=== PATIENT | female | born 1955 | race Caucasian/White ===

== ENCOUNTER 2017-07-18 02:49 | Inpatient (IN) | payer OTHER ==
[~2017-07-18] VITALS: Ht 152.4 cm; Wt 36.3 kg
[~2017-07-18 02:49] MED LIST: ALPRAZOLAM0.25 M1 PO; GUAIFEN-CODEINE10 ML PO; IMITREX50 M1 PO; LEVAQUIN750 M1 PO; MEDROL4 M2 PO; PAROXETINE HCL40 M1 PO; PAXIL10 M1 PO; PROAIR HFA8.5 GM INH; PROCHLORPERAZIN25 M1 PR
--- NOTE | 2017-07-18 03:36 | ED DYSPNEA/ASTHMA COMPLAINT ---
History of Present Illness General Chief Complaint: Upper Respiratory Sx/Fever Stated Complaint: "COUGHING,FEVER,SEEN LAST WK FOR BRONCHITIS" Source: patient, family, old records Exam Limitations: no limitations Vital Signs & Intake/Output Vital Signs & Intake/Output Vital Signs Date Time Temp Pulse Resp B/P B/P Pulse O2 O2 Flow FiO2 Mean Ox Delivery Rate 07/18 0522 98.9 95 18 122/76 97 Nasal 2.0L Cannula 07/18 0323 Nasal 2.0L Cannula 07/18 0307 100 30 200/80 79 Room Air Room Air Allergies Coded Allergies: amoxicillin (From AUGMENTIN) (Mild, DIARRHEA 07/18/17) clavulanic acid (From AUGMENTIN) (Mild, DIARRHEA 07/18/17) Reconcile Medications Albuterol Sulfate (Proair Hfa) 90 MCG HFA.AER.AD 2 PUF INH Q4-6 PRN PRN WHEEZING Alprazolam 0.25 MG TABLET 1 TAB PO BIDP PRN ANXIETY (Reported) Codeine Phosphate/Guaifenesi (Guaifen-Codeine 200-20 MG/10ML) 20 MG-200 MG/10 ML LIQUID 10 ML PO Q6HR PRN COUGH Levofloxacin (Levaquin) 750 MG TABLET 1 TAB PO DAILY bronchitis Methylprednisolone. (Medrol) 4 MG TAB.DS.PK 1 DP PO AD BRONCHITIS 6 on day 1 then reduce by one tablet daily until gone Paroxetine HCl (Paxil) 10 MG TABLET 1 TAB PO DAILY MENTAL HEALTH (Reported) Paroxetine HCl 40 MG TABLET 1 TAB PO DAILY MENTAL HEALTH (Reported) Prochlorperazine 25 MG SUPP.RECT 1 SUPP [place] BIDP PRN UNKNOWN (Reported) Sumatriptan Succinate (Imitrex) 50 MG TABLET 1 TAB PO DAILY PRN HEADACHE ( Reported) Triage Note: PT BROUGHT DIRECTLY TO 7 FOR O2 SAT OF 79%. PT WAS RECNELTY DX WITH BRONCHITIS AND GIVEN LEVAQUIN, PT FINISHED DOSE BUT FEEL WORSE. PT LUNGS SOUND WHEEZY AND TIGHT. PT HAS COUGH BUT IS NOT PRODUCING PHLEGM. DENIES FEVERS. PT PLACED ON 2L NC AND INCREASED TO 91% Triage Nurses Notes Reviewed? yes HPI: Patient is to the emergency department with increasing shortness of breath and dyspnea on exertion. Positive wheezing. Patient denies any chest pain or chest tightness. Patient states that in the beginning of May she developed bronchitis Z-Moody. Patient felt better until beginning of June when again the symptoms started to come back. She went to see her primary care physician in the middle June and was sent to the emergency room for evaluation for low oxygen level. Patient was social only discharged on steroids and Levaquin. Patient finished the Levaquin last week and completed a 6 day course of steroids. Patient states that she was feeling better until 2 days ago when again the symptoms started to come back. Positive nonproductive cough. No anorexia. No nausea or vomiting. Past History Travel History Traveled to [place] past 21 day No Medical History Any Pertinent Medical History? 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 No Review of Systems Review of Systems Constitutional: Reports: no symptoms. EENTM: Reports: no symptoms. Respiratory: Reports: see HPI, cough, short of breath. Cardiovascular: Reports: no symptoms. GI: Reports: no symptoms. Genitourinary: Reports: no symptoms. Musculoskeletal: Reports: no symptoms. Skin: Reports: no symptoms. Neurological/Psychological: Reports: no symptoms. Hematologic/Endocrine: Reports: no symptoms. Immunologic/Allergic: Reports: no symptoms. All Other Systems: Reviewed and Negative Physical Exam Physical Exam General Appearance: well developed/nourished, alert, awake, anxious, moderate distress Head: atraumatic, normal appearance Eyes: Bilateral: PERRL, EOMI. Ears, Nose, Throat: normal pharynx, normal ENT inspection, hearing grossly normal Neck: normal inspection, supple, full range of motion Respiratory: decreased breath sounds, wheezing Cardiovascular: regular rate/rhythm, normal peripheral pulses Gastrointestinal: normal bowel sounds, soft, non-tender Extremities: normal inspection, normal capillary refill, normal range of motion, no edema Neurologic/Psych: no motor/sensory deficits, awake, alert, oriented x 3, normal mood/affect Skin: intact, normal color, warm/dry Lymphatic: no anterior cervical duc Core Measures ACS in differential dx? No CVA/TIA Diagnosis No Sepsis Present: No Sepsis Focused Exam Completed? No Progress Differential Diagnosis: asthma, AMI, bronchitis, CHF, COPD, pulmonary embolism, pneumonia, pneumothorax Plan of Care: Orders Procedure Date/time Status Heart Healthy Diet 07/18 B Active ED Holding Orders 07/18 553 Active Admit to inpatient 07/18 553 Active Vital Signs 07/18 553 Active Code Status 07/18 553 Active BLOOD CULTURE 07/18 436 Active ARTERIAL BLOOD GAS (GEN) 07/18 336 Complete Telemetry/Tumbler Machine Operator Helper 07/18 336 Active TROPONIN LEVEL 07/18 336 Complete COMPREHENSIVE METABOLIC PANEL 07/18 336 Complete CBC WITHOUT DIFFERENTIAL 07/18 336 Complete EKG 07/18 336 Active Laboratory Tests 07/18/17449: Anion Gap 10, Estimated GFR > 60, BUN/Creatinine Ratio 57.5 H, Glucose 142 H, Calcium 9.5, Total Bilirubin 0.3, AST 26, ALT 29, Alkaline Phosphatase 75, Troponin I < 0.01, Total Protein 6.1 L, Albumin 3.6, Globulin 2.5, Albumin/ Globulin Ratio 1.4, CBC w Diff MAN DIFF ORDERED, RBC 4.43, MCV 95.6, MCH 31.5 H , RDW 14.7 H, MPV 7.0 L, Gran % 90.5 H, Lymphocytes % 4.1 L, Monocytes % 5.1 , Eosinophils % 0, Basophils % 0.3, Absolute Granulocytes 8.1 H, Segmented Neutrophils 95 H, Absolute Lymphocytes 0.4 L, Lymphocytes 4 L, Monocytes 1 L , Absolute Monocytes 0.5, Absolute Eosinophils 0, Absolute Basophils 0, Platelet Estimate ADEQUATE, Normocytic RBCs VERIFIED, Normochromic RBCs VERIFIED, PUBS MCHC 32.9 L, Fld Total RBCs Counted 100 07/18/17419: pH 7.37, pCO2 43, pO2 71 L, HCO3 24, ABG O2 Sat (Measured) 90.0 L, Carboxyhemoglobin 3.4, O2 Concentration % 2LPM, O2 Delivery Method NC, Phlebotomy Draw Site RIGHT BRACHIAL Microbiology 07/18 450 BLOOD: Blood Culture - RECD 07/18 448 BLOOD: Blood Culture - RECD Diagnostic Imaging: Viewed by Me: Radiology Read. Discussed w/RAD: Radiology Read. CXR Impression: PATIENT: NEHEMIAS MASON PRESENT AGE: 62 PATIENT ACCOUNT NO: [id number] : 57 LOCATION: [facility] ORDERING PHYSICIAN: Oscar Gaspar MD SERVICE DATE: 07/18/17 EXAM TYPE: RAD - XRY- PORTABLE CHEST XRAY XR PORTABLE CHEST CLINICAL INFORMATION: Shortness of breath. COMPARISON: Chest x-ray July 04, 2017. TECHNIQUE: Portable frontal view of the chest was obtained. FINDINGS: Lungs are hyperinflated. Hazy opacity within the right midlung could reflect developing pneumonia. Lungs are otherwise clear. There is no pneumothorax. Chronic blunting of the costophrenic angles bilaterally. Cardiac silhouette size is normal. There are no acute osseous findings. IMPRESSION: Hazy opacity within the right midlung could reflect developing pneumonia. Radiographic follow-up recommended following conservative treatment to document resolution. DICTATED BY: Marvin Heredia MD DATE/TIME DICTATED:07/18/17414 SALES TEAM MEMBER:JESUS MANUEL DATE/TIME TRANSCRIBED:414 CONFIDENTIAL, DO NOT COPY WITHOUT APPROPRIATE AUTHORIZATION. < Electronically signed in Other Vendor System> SIGNED BY: Marvin Heredia MD 07/18/17420 Initial ED EKG: SR, COR PULMONAL, NSSTT CHANGES Prior EKG: unchanged Departure Departure Disposition: STILL A PATIENT Condition: Fair Clinical Impression Primary Impression: Pneumonia Qualifiers: Pneumonia type: due to unspecified organism Laterality: right Lung location: middle lobe of lung Qualified Code: J18.1 - Lobar pneumonia, unspecified organism Referrals: Stevo Ovalle MD (PCP/Family) Departure Forms: Customer Survey General Discharge Information Admission Note Spoke With: Debo Dawson MD Documentation of Exam: Documentation of any treatments & extenuating circumstances including Concerns Regarding Discharge (functional status, medication knowledge or non-compliance, living conditions, etc.) that warrant an admission rather than observation: [IV ABX, PULM CONSULT, SMOKING CESSATION EDUCATION, RESP EVAL AND TREATMENT, IV STEROIDS] Critical Care Note Critical Care Note Critical Care Time: non-applicable
--- NOTE | 2017-07-18 04:21 | RADIOLOGY REPORT ---
XR PORTABLE CHEST CLINICAL INFORMATION: Shortness of breath. COMPARISON: Chest x-ray July 04, 2017. TECHNIQUE: Portable frontal view of the chest was obtained. FINDINGS: Lungs are hyperinflated. Hazy opacity within the right midlung could reflect developing pneumonia. Lungs are otherwise clear. There is no pneumothorax. Chronic blunting of the costophrenic angles bilaterally. Cardiac silhouette size is normal. There are no acute osseous findings. IMPRESSION: Hazy opacity within the right midlung could reflect developing pneumonia. Radiographic follow-up recommended following conservative treatment to document resolution.
[2017-07-18 05:09] LABS: ABSOLUTE BASOPHIL COUNT 0 /CUMM (0.0-0.2); ABSOLUTE EOSINOPHIL COUNT 0 /CUMM (0.0-0.7); ABSOLUTE GRANULOCYTE CT 8.1 /CUMM (1.4-6.5); ABSOLUTE LYMPH COUNT 0.4 /CUMM (1.2-3.4); ABSOLUTE MONOCYTE COUNT 0.5 /CUMM (0.10-0.60); BASOPHIL % 0.3 % (0.0-2.0); EOSINOPHIL % 0 % (0-5); GRANULOCYTE % 90.5 % (42.2-75.2); HEMATOCRIT 42.4 % (37-47); MEAN CORPUSCULAR HGB 31.5 PG (27.0-31.0); MEAN CORPUSCULAR HGB CONC 32.9 G/DL (33.0-37.0); MEAN CORPUSCULAR VOLUME 95.6 FL (81.0-99.0); PLATELET COUNT 307 /CUMM (130-400); RBC DISTRIBUTION WIDTH 14.7 % (11.5-14.5); RED BLOOD CELL CT 4.43 /CUMM (4.20-5.40); WHITE BLOOD CELL COUNT 8.9 /CUMM (4.8-10.8)
[2017-07-18 08:11] VITALS: BP 126/78
--- NOTE | 2017-07-18 08:34 | History & Physical ---
Dolly Lara 07/18/17 0833: General Information and HPI MD Statement: I have seen and personally examined NEHEMIAS MASON and documented this H&P. The patient is a 62 year old F who presented with a patient stated chief complaints of worsenig SOB and cough Source of Information: patient, family Exam Limitations: no limitations History of Present Illness: Patient is a 62-year-old thin/lean woman with a past medical history significant for smoking(for more than 30 years), history of anxiety depression, migraine presented to the ED this morning with chief complaints of worsening shortness of breath and cough. Patient mentioned that in May she was diagnosed with bronchitis and was treated with Z-Moody and steroids. After finishing the course her symptoms improved but later in June she started having similar symptoms again. Reported dry cough with shortness of breath without chest discomfort and palpitations. She was seen at her primary care physician office and was sent in to the ER with concerns of low oxygen levels. In the ER patient was prescribed Levaquin and steroids and discharged home. Reported sick contact with her grandchildren. Denied any fever or chills. Denies any nausea vomiting abdominal discomfort. No urinary complaints. Patient mentioned that she finished the antibiotics and steroids last week without much improvement in her symptoms. She has been having nonproductive cough associated with both exertional and resting shortness of breath. Last night her symptoms gotten worse to the point that she could not able to breathe. She was immediately brought to the ER when ambulance. In the ER she was found to be in respiratory distress desaturating to 79%, improved to 91% on 2 L. After receiving DuoNeb treatment with IV steroids and antibiotics, patient felt better. As mentioned above, patient has been smoking for the last 30-40 years, still smokes half a pack a day, never been diagnosed with COPD/seen by distribution clerk. Does not drink alcohol or use any illicit drugs. Allergies/Medications Allergies: Coded Allergies: amoxicillin (From AUGMENTIN) (Mild, DIARRHEA 07/18/17) clavulanic acid (From AUGMENTIN) (Mild, DIARRHEA 07/18/17) Home Med list Albuterol Sulfate (Proair Hfa) 90 MCG HFA.AER.AD 2 PUF INH Q4-6 PRN PRN WHEEZING Alprazolam 0.25 MG TABLET 1 TAB PO BIDP PRN ANXIETY (Reported) Codeine Phosphate/Guaifenesi (Guaifen-Codeine 200-20 MG/10ML) 20 MG-200 MG/10 ML LIQUID 10 ML PO Q6HR PRN COUGH Levofloxacin (Levaquin) 750 MG TABLET 1 TAB PO DAILY bronchitis Methylprednisolone. (Medrol) 4 MG TAB.DS.PK 1 DP PO AD BRONCHITIS 6 on day 1 then reduce by one tablet daily until gone Paroxetine HCl (Paxil) 10 MG TABLET 1 TAB PO DAILY MENTAL HEALTH (Reported) Paroxetine HCl 40 MG TABLET 1 TAB PO DAILY MENTAL HEALTH (Reported) Prochlorperazine 25 MG SUPP.RECT 1 SUPP [place] BIDP PRN UNKNOWN (Reported) Sumatriptan Succinate (Imitrex) 50 MG TABLET 1 TAB PO DAILY PRN HEADACHE ( Reported) Past History Travel History Traveled to [place] past 21 day No Medical History Blood Transfusion Hx: No Neurological: migraine EENT: NONE Cardiovascular: NONE Respiratory: COPD Gastrointestinal: NONE Hepatic: NONE Renal: NONE Musculoskeletal: NONE Psychiatric: anxiety Endocrine: NONE Blood Disorders: NONE Cancer(s): NONE 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 Home Services at Home: None Smoking Status: Current Everyday Smoker ETOH Use: occasional use Illicit Drug Use: denies illicit drug use Review of Systems Review of Systems Constitutional: Denies: chills, diaphoresis, fever, malaise. EENTM: Denies: blurred vision, double vision, visual changes. Cardiovascular: Denies: chest pain, edema, orthopena. Respiratory: Reports: cough, short of breath, wheezing. GI: Denies: abdominal pain, bloating, constipation, diarrhea, distention, bowel incontinence. Genitourinary: Denies: discharge, dysuria. Musculoskeletal: Denies: back pain, gout, joint pain. Skin: Denies: cysts, change in skin color. Neurological/Psychological: Denies: anxiety, ataxia, cognitive dysfunction. Exam & Diagnostic Data Last 24 Hrs of Vital Signs/I&O Vital Signs Date Time Temp Pulse Resp B/P B/P Pulse O2 O2 Flow FiO2 Mean Ox Delivery Rate 07/18 08 91 Nasal 4.5L Cannula 07/18 811 98.0 102 18 126/78 93 Nasal 4.0L Cannula 07/18 0749 97.9 104 24 125/79 90 Nasal 2.0L Cannula 07/18 0522 98.9 95 18 122/76 97 Nasal 2.0L Cannula 07/18 0400 90 Nasal 2.0L Cannula 07/18 0323 Nasal 2.0L Cannula 07/18 0307 100 30 200/80 79 Room Air Room Air Intake & Output 07/18 1600 07/18 0800 07/18 0000 Intake Total 0 Output Total Balance 0 Intake, Oral 0 Patient 79 lb 15.99 oz 79 lb 15.99 oz Weight Physical Exam General Appearance Alert, Mild Distress Skin No Rashes, No Breakdown Skin Temp/Moisture Exam: Warm/Dry Sepsis Skin Exam (color): Normal for Ethnicity HEENT Atraumatic, PERRLA, EOMI Neck Supple, No JVD Cardiovascular Regular Rate, Normal S1, Normal S2 Lungs decreased breath sounds bilaterally with wheezing Abdomen Normal Bowel Sounds, Soft, No Tenderness Neurological Normal Gait, Normal Speech Extremities No Clubbing, No Cyanosis, No Edema Vascular Normal Pulses, Pulses Symmetrical Last 24 Hrs of Labs/Gamaliel: Laboratory Tests 07/18/17 0450: Anion Gap 10, Estimated GFR > 60, BUN/Creatinine Ratio 57.5 H, Glucose 142 H, Calcium 9.5, Total Bilirubin 0.3, AST 26, ALT 29, Alkaline Phosphatase 75, Troponin I < 0.01, Total Protein 6.1 L, Albumin 3.6, Globulin 2.5, Albumin/ Globulin Ratio 1.4, CBC w Diff MAN DIFF ORDERED, RBC 4.43, MCV 95.6, MCH 31.5 H , RDW 14.7 H, MPV 7.0 L, Gran % 90.5 H, Lymphocytes % 4.1 L, Monocytes % 5.1 , Eosinophils % 0, Basophils % 0.3, Absolute Granulocytes 8.1 H, Segmented Neutrophils 95 H, Absolute Lymphocytes 0.4 L, Lymphocytes 4 L, Monocytes 1 L , Absolute Monocytes 0.5, Absolute Eosinophils 0, Absolute Basophils 0, Platelet Estimate ADEQUATE, Normocytic RBCs VERIFIED, Normochromic RBCs VERIFIED, PUBS MCHC 32.9 L, Fld Total RBCs Counted 100 07/18/17 0420: pH 7.37, pCO2 43, pO2 71 L, HCO3 24, ABG O2 Sat (Measured) 90.0 L, Carboxyhemoglobin 3.4, O2 Concentration % 2LPM, O2 Delivery Method NC, Phlebotomy Draw Site RIGHT BRACHIAL Microbiology 07/18 828 URINE ROUT: Legionella Antigen - ORD 07/18 828 URINE ROUT: Streptococcus pneumoniae Antigen (M - ORD 07/18 828 LOWER RESP: Respiratory Culture - ORD 07/18 828 LOWER RESP: Gram Stain - ORD 07/18 714 NASOPHARYN: Influenza Virus A & B Rapid Smear - COMP 07/18 450 BLOOD: Blood Culture - RECD 07/18 448 BLOOD: Blood Culture - RECD Assessment/Plan Assessment: Patient is a 62-year-old thin/lean woman with a past medical history significant for smoking(for more than 30 years), history of anxiety depression, migraine presented to the ED this morning with chief complaints of worsening shortness of breath and cough. Initial vitals on admission: Impression 98.8, pulse 100, blood pressure 200/80 now 126/78, RR: 13 now 18 saturating around 90-93% initially on 2 L now on 4.5 L. Pertinent labs on admission and no evidence of leukocytosis H&H stable normal BEP. First set of troponin negative, EKG pending ABG normal pH 7.37, PCO2 43 with PO2: 71 Chest x-ray : Hazy opacity within the right midlung could reflect developing pneumonia. Assessment and plan This is a 62-year-old thin/lean woman with a past medical history significant for smoking(for more than 30 years), history of anxiety depression, migraine presented to the ED this morning with chief complaints of worsening shortness of breath and cough In the ER she was found to be in respiratory distress desaturating to 79%, improved to 91% on 2 L. After receiving DuoNeb treatment with IV steroids and antibiotics, patient felt better. At the time of evaluation in the morning at around 8 AM, patient was having hard time in breathing denied any chest discomfort or palpitations. She was given another 1 of treatment and oxygen was increased to 4.5 L through nasal cannula. Chest x-ray is evident for developing right mid-level pneumonia but due to significant smoking history and clinical evidence of hypoxia PE should be ruled out Problem list .Acute hypoxic respiratory failure due to Right midlung pneumonia Rule out primary embolism/malignancy. Significant history of smoking History of anxiety and depression Plan : 1.Acute hypoxic respiratory failure due to Right midlung pneumonia: * Admit the patient [facility] floor * Continue with IV cefazolin azithromycin and IV Solu-Medrol 40 mg every 12. * Blood cultures have been sent, will obtain sputum culture urine Legionella and strep pneumo antigens(flu swab negative for influenza). * Robitussin as needed for cough * Monitor vitals every 4 hours. 2.Rule out primary embolism/malignancy leading to postobstructive pneumonia/COPD (due to smoking) * Due to significant smoking history and clinical evidence of hypoxia will rule out pulmonary embolism with CTA chest. First set of troponin negative obtain EKG. * Obtain pulmonary consult. 3. Significant history of smoking: * Smoking cessation counseling has been done * Start nicotine patch. 4.History of anxiety and depression: * Continue home medications. DVT prophylaxis subcutaneous Lovenox Moderate to severe pain controlled with Tylenol Patient is full code As Ranked By This Provider Problem List: 1. Pneumonia Qualifiers Pneumonia type: due to unspecified organism Laterality: right Lung location: middle lobe of lung Qualified Code: J18.1 - Lobar pneumonia, unspecified organism 2. COPD exacerbation Core Measures/Misc (04/08) Acute Coronary Syndrome ACS Diagnosis: No Congestive Heart Failure Congestive Heart Failure Diagnosis No Cerebrovascular Accident CVA/TIA Diagnosis: No VTE (View Protocol) VTE Risk Factors No risk factors No Mechanical VTE Prophylaxis d/t LowRisk-No Interven Req'd No VTE Pharm Prophylaxis d/t LowRisk-No Interven Req'd Sepsis (View protocol) Sepsis Present: No Resident Review Statement Resident Statement: examined this patient, discussed with pharmacy graduate intern Nissa Herbert MD 07/18/17 1017: Attending MD Review Statement Attending Statement Attending MD Statement: examined this patient, discuss w/resident/PA/WOUND CARE PHYSICIAN, agreed w/resident/PA/WOUND CARE PHYSICIAN, reviewed EMR data (avail), discussed with nursing, reviewed images Attending Assessment/Plan: This is a 62-year-old female with a past medical history of emphysema and active tobacco use still smoking who is here with acute hypoxemic respiratory failure. Patient made an outpatient visit to her PCP and got a dose of antibiotics and then came to the ED on July 04 where she was given a Medrol Dosepak and a course of Levaquin. Despite that she continues to be short of breath and today her room air sat as documented in the ER was 79-85%. She is an acute hypoxemic respiratory failure, failed outpatient oral antibiotics and oral steroids and has an opacity in her right middle lung, concern for developing pneumonia. In addition obviously I'm worried about underlying malignancy or a postobstructive pneumonia given the active tobacco use and the severe cachexia. At this point will bring her into [facility], give IV ceftriaxone and azithromycin with IV steroids. TRC with nebs. We'll get a CTA to make sure there is no PE and to look for malignancy. Will call pulmonary to see her and will follow closely. DVT prophylaxis and will follow-up the CTA results. Off note family history is noncontributory.
--- NOTE | 2017-07-18 10:17 | Admission Certification ---
Admission Certification Certification Statement - As attending physician, I certify that at the time of - admission, based on clinical presentation, severity of - symptoms, need for further diagnostic testing and - therapeutic interventions, and risk of adverse outcomes - without in-hospital treatment, in my clinical assessment, - this patient requires an acute hospital stay for a minimum - of two nights or longer. I have also considered psychsocial - factors such as support system, advanced age, financial - issues, cognitive issues, and failed out-patient treatments, - past re-admission history, safety of patient, and lack of - compliance as applicable. Specific rationale supporting this admission is: Patient with severe COPD and emphysema here with acute hypoxemic respiratory failure and pneumonia having failed outpatient treatment.
--- NOTE | 2017-07-18 11:02 | Discharge Summary ---
Visit Information Visit Dates Admission Date: 07/18/17 Discharge Date: 07/24/17 Hospital Course Course Attending Physician: You JOYNER,Viraj Arias Primary Care Physician: Stevo Ovalle MD Consulting Request: Consulting Specialty: Pulmonary Disease Hospital Course: 62-year-old female past medical history of COPD with active tobacco use and probable anxiety and depression was admitted initially to the general medical floor with what was thought to be a COPD exacerbation. Patient is very cachectic and coughing with acute hypoxemic respiratory failure on admission. A CTA was done which was negative for PE but did show severe emphysema with possible right basilar pneumonia and some nonspecific adenopathy. Patient was transferred to the ICU for acute hypoxemic and hypercapnic respiratory failure and was treated with noninvasive positive pressure ventilation with BiPAP, initially IV ceftriaxone and azithromycin later by mouth Ceftin and IV steroids later transitioned to by mouth steroids. She had severe anxiety and we were trying to avoid benzodiazepines. She improved slowly and over the New Year's weekend was transferred back to general medicine. She is now on a by mouth prednisone taper and has a few more days left to complete her by mouth antibiotic course. She's been counseled extensively about tobacco cessation. She is being discharged on home oxygen as she qualified as she severely hypoxemic and knows to follow-up with her PCP and Dr. Orta. Allergies: Coded Allergies: amoxicillin (From AUGMENTIN) (Mild, DIARRHEA 07/22/17) clavulanic acid (From AUGMENTIN) (Mild, DIARRHEA 07/22/17) Disposition Summary Disposition Principal Diagnosis: Acute hypoxic and hypercapnic respiratory failure secondary to COPD exacerbation Right basilar pneumonia COPD cachexia Severe emphysema Additional Diagnosis: Probable anxiety and osteoporosis Discharge Disposition: home health services Discharge Instructions General Discharge Information Code Status: Full Code Patient's Diet: regular Patient's Activity: Ad luis. Follow-Up Instructions/Appts: With the retanned leather roller Dr. Orta. Complete the steroid taper and the antibiotics. Use the oxygen as indicated. Medications at Discharge Discharge Medications: Continue taking these medications: Sumatriptan Succinate (Imitrex) 50 MG TABLET 1 Tablet ORAL DAILY as needed for HEADACHE Qty = 54 Comments: NOT GIVEN IN HOSPITAL Paroxetine HCl (Paxil) 10 MG TABLET 1 Tablet ORAL DAILY Qty = 90 Comments: Last Taken:07/23/2017 Time:8:00 PM 50MG DOSE Alprazolam (Alprazolam) 0.25 MG TABLET 1 Tablet ORAL 2 x Daily as needed as needed for ANXIETY Qty = 30 Comments: Last Taken:07/24/2017 Time:12:00 Albuterol Sulfate (Proair Hfa) 90 MCG HFA.AER.AD 2 Puff Inhale through mouth EVERY 4-6 HOURS NEEDED as needed for WHEEZING Qty = 1 Comments: Last Taken:07/24/17 Time:12:42 Start taking the following new medications: Cefuroxime Axetil (Cefuroxime) 250 MG TABLET 500 Milligram ORAL EVERY 12 HOURS Qty = 10 No Refills Instructions: .. Comments: Last Taken:07/24/2017 Time:09:28 Tiotropium Morley (Spiriva) 18 MCG CAP.W.DEV 1 Puff Inhale through mouth DAILY Qty = 1 No Refills Instructions: .. Comments: Last Taken:07/24/2017 Time:09:30AM Albuterol Sulfate (Albuterol Sulfate) 1.25 MG/3 ML VIAL.NEB 1 Vial Inhale Solution EVERY SIX HOURS as needed for shortness of breath Qty = 75 No Refills Instructions: for nebulizer machine.. Comments: Last Taken:07/24/2017 Time:12:42PM Budesonide/Formoterol Fumarate (Symbicort 160-4.5 Mcg Inhaler) 160 MCG-4.5 MCG/ ACTUATION HFA.AER.AD 2 Puff Inhale through mouth TWICE DAILY Qty = 1 No Refills Instructions: .. Comments: Last Taken:07/24/2017 Time:09:34 Guaifenesin (Guaifenesin) 100 MG/5 ML LIQUID 10 Milliliters ORAL EVERY SIX HOURS NEEDED as needed for COUGH Qty = 1 No Refills Instructions: .. Comments: Last Taken:07/24/2017 Time:09:30AM Prednisone (Prednisone) 10 MG TABLET 0 ORAL SEE INSTRUCTIONS Qty = 30 No Refills Instructions: take 4 pills for two days then take 3 pills for two days then take 2 pills for two days then take 1 pill for two days then take half a pill for two days then stop.. Comments: Last Taken:07/24/2017 Time:09:30AM Copies To: Yamile JOYNER,Stevo [place]; You JOYNER,Viraj Arias
--- NOTE | 2017-07-18 11:51 | CT SCAN REPORT ---
EXAMINATION: CT ANGIOGRAM OF THE CHEST WITH AND WITHOUT CONTRAST (CT PULMONARY ANGIOGRAM FOR PE) CLINICAL INFORMATION: acute SOB COMPARISON: Chest x-ray from earlier today TECHNIQUE: Prior to contrast administration, noncontrast localization images were obtained. Subsequently, multidetector volumetric imaging was performed from the thoracic inlet to below the diaphragms following the administration of 94 mL Optiray 350 intravenous contrast. No contrast reaction reported. Sagittal, coronal, and MIP oblique sagittal reformatted images were obtained on the CT workstation, uploaded to PACS, and reviewed. Total exam dose-length product 186.97 mGy-cm. FINDINGS: QUALITY OF STUDY/CONTRAST BOLUS: Satisfactory PULMONARY ARTERIES: No central or segmental pulmonary emboli are identified. Assessment of the distal vasculature towards the lung bases is inadequate due to respiratory motion artifact. THORACIC AORTA: No aneurysm or dissection. LUNG: There is severe upper lobe predominant emphysema. No regions of consolidation bilaterally. Though assessment of the lung bases is limited due to respiratory motion artifact, there is some suspected tree in bud type nodularity in the basilar right lower lobe, favoring an infectious/inflammatory bronchiolitis. There is also suspected mucoid impaction and peribronchial opacity in the right middle lobe. Dependent atelectasis is suspected in the basilar right lower lobe. PLEURA: No pleural effusion or pneumothorax. MEDIASTINUM: The visualized thyroid gland is unremarkable. There is suspected to be mild right hilar lymphadenopathy. Cardiac size is within normal limits; no pericardial effusion. No evidence of septal bowing or right heart strain. CHEST WALL/AXILLA: No axillary or internal mammary lymphadenopathy. OSSEOUS STRUCTURES: There are scattered mild degenerative changes in the spine. UPPER ABDOMEN: Unremarkable. No reflux of contrast into the hepatic veins to suggest elevated right heart pressures. IMPRESSION: 1. No pulmonary embolus identified. 2. Severe upper lobe predominant emphysema. Suspected regions of tree in bud type nodularity in the basilar right lower lobe, favoring an infectious/inflammatory bronchiolitis. 3. Mild right hilar adenopathy which is nonspecific and may be reactive in nature, though the possibility of malignancy cannot be excluded especially given the severe emphysema. Follow-up CT in 2-3 months may be helpful to assess for persistence, which would increase concern for a malignant process. VTE: negative
[2017-07-18 14:30] VITALS: BP 122/74
--- NOTE | 2017-07-18 17:19 | Cons- Pulmonary ---
General Information and HPI Consulting Request Date of Consult: 07/18/17 Requested By: MED TEAM History of Present Illness: Patient is a 62-year-old thin/lean woman with a past medical history significant for smoking(for more than 30 years), history of anxiety depression, migraine presented to the ED with chief complaints of worsening shortness of breath and cough. Patient mentioned that in May she was diagnosed with bronchitis and was treated with Z-Moody and steroids. After finishing the course her symptoms improved but later in June she started having similar symptoms again. Reported dry cough with shortness of breath without chest discomfort and palpitations. She was seen at her primary care physician office and was sent in to the ER with concerns of low oxygen levels. In the ER patient was prescribed Levaquin and steroids and discharged home. Reported sick contact with her grandchildren. Denied any fever or chills. Denies any nausea vomiting abdominal discomfort. No urinary complaints. She has been having nonproductive cough associated with both exertional and resting shortness of breath. Her symptoms gotten worse to the point that she could not able to breathe. She was immediately brought to the ER when ambulance. In the ER she was found to be in respiratory distress desaturating to 79%, improved to 91% on 2 L. After receiving DuoNeb treatment with IV steroids and antibiotics, patient felt better. 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 Does not drink alcohol or use any illicit drugs. No prior steroid use Never been intubated Allergies/Medications Allergies: Coded Allergies: amoxicillin (From AUGMENTIN) (Mild, DIARRHEA 07/18/17) clavulanic acid (From AUGMENTIN) (Mild, DIARRHEA 07/18/17) Home Med List: Albuterol Sulfate (Proair Hfa) 90 MCG HFA.AER.AD 2 PUF INH Q4-6 PRN PRN WHEEZING Alprazolam 0.25 MG TABLET 1 TAB PO BIDP PRN ANXIETY (Reported) Codeine Phosphate/Guaifenesi (Guaifen-Codeine 200-20 MG/10ML) 20 MG-200 MG/10 ML LIQUID 10 ML PO Q6HR PRN COUGH Levofloxacin (Levaquin) 750 MG TABLET 1 TAB PO DAILY bronchitis Methylprednisolone. (Medrol) 4 MG TAB.DS.PK 1 DP PO AD BRONCHITIS 6 on day 1 then reduce by one tablet daily until gone Paroxetine HCl (Paxil) 10 MG TABLET 1 TAB PO DAILY MENTAL HEALTH (Reported) Paroxetine HCl 40 MG TABLET 1 TAB PO DAILY MENTAL HEALTH (Reported) Prochlorperazine 25 MG SUPP.RECT 1 SUPP [place] BIDP PRN UNKNOWN (Reported) Sumatriptan Succinate (Imitrex) 50 MG TABLET 1 TAB PO DAILY PRN HEADACHE ( Reported) Review of Systems Comments Constitutional: Denies: chills, diaphoresis, fever, malaise. EENTM: Denies: blurred vision, double vision, visual changes. Cardiovascular: Denies: chest pain, edema, orthopena. Respiratory: Reports: cough, short of breath, wheezing. GI: Denies: abdominal pain, bloating, constipation, diarrhea, distention, bowel incontinence. Genitourinary: Denies: discharge, dysuria. Musculoskeletal: Denies: back pain, gout, joint pain. Skin: Denies: cysts, change in skin color. Neurological/Psychological: Denies: anxiety, ataxia, cognitive dysfunction. 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 Home Services at Home: None Smoking Status: Current Everyday Smoker ETOH Use: occasional use Illicit Drug Use: denies illicit drug use Exam & Diagnostic Data Last 24 Hrs of Vital Signs/I&O Vital Signs Date Time Temp Pulse Resp B/P B/P Pulse O2 O2 Flow FiO2 Mean Ox Delivery Rate 07/18 1430 97.8 92 18 122/74 94 Nasal 4.5L Cannula 07/18 1028 Nasal 4.0L Cannula 07/18 0811 91 Nasal 4.5L Cannula 07/18 0811 98.0 102 18 126/78 93 Nasal 4.0L Cannula 07/18 0750 93 Nasal 4.0L Cannula 07/18 0749 97.9 104 24 125/79 90 Nasal 2.0L Cannula 07/18 0522 98.9 95 18 122/76 97 Nasal 2.0L Cannula 07/18 0400 90 Nasal 2.0L Cannula 07/18 0323 Nasal 2.0L Cannula 07/18 0307 100 30 200/80 79 Room Air Room Air Intake & Output 07/18 1600 07/18 0800 07/18 0000 Intake Total 600 0 Output Total Balance 600 0 Intake, Oral 600 0 Patient 79 lb 15.99 oz 79 lb 15.99 oz Weight Last 48 Hrs of Labs/Gamaliel: Laboratory Tests 07/18/17 0450: Anion Gap 10, Estimated GFR > 60, BUN/Creatinine Ratio 57.5 H, Glucose 142 H, Calcium 9.5, Total Bilirubin 0.3, AST 26, ALT 29, Alkaline Phosphatase 75, Troponin I < 0.01, Ccu-Z-Psfuaerxnfd Pept 100, Total Protein 6.1 L, Albumin 3.6 , Globulin 2.5, Albumin/Globulin Ratio 1.4, CBC w Diff MAN DIFF ORDERED, RBC 4.43, MCV 95.6, MCH 31.5 H, RDW 14.7 H, MPV 7.0 L, Gran % 90.5 H, Lymphocytes % 4.1 L, Monocytes % 5.1, Eosinophils % 0, Basophils % 0.3, Absolute Granulocytes 8.1 H, Segmented Neutrophils 95 H, Absolute Lymphocytes 0.4 L, Lymphocytes 4 L, Monocytes 1 L, Absolute Monocytes 0.5, Absolute Eosinophils 0, Absolute Basophils 0, Platelet Estimate ADEQUATE, Normocytic RBCs VERIFIED, Normochromic RBCs VERIFIED, PUBS MCHC 32.9 L, Fld Total RBCs Counted 100 07/18/17 0420: pH 7.37, pCO2 43, pO2 71 L, HCO3 24, ABG O2 Sat (Measured) 90.0 L, Carboxyhemoglobin 3.4, O2 Concentration % 2LPM, O2 Delivery Method NC, Phlebotomy Draw Site RIGHT BRACHIAL Microbiology 07/18 1613 URINE ROUT: Legionella Antigen - COMP 07/18 1613 URINE ROUT: Streptococcus pneumoniae Antigen (M - COMP 07/18 0714 NASOPHARYN: Influenza Virus A & B Rapid Smear - COMP Assessment/Plan Impression/Plan: General Appearance Alert, Mild Distress Skin No Rashes, No Breakdown Skin Temp/Moisture Exam: Warm/Dry Sepsis Skin Exam (color): Normal for Ethnicity HEENT Atraumatic, PERRLA, EOMI Neck Supple, No JVD Cardiovascular Regular Rate, Normal S1, Normal S2 Lungs decreased breath sounds bilaterally with wheezing Abdomen Normal Bowel Sounds, Soft, No Tenderness Neurological Normal Gait, Normal Speech Extremities No Clubbing, No Cyanosis, No Edema Vascular Normal Pulses, Pulses Symmetrical CT CHEST IMPRESSION: 1. No pulmonary embolus identified. 2. Severe upper lobe predominant emphysema. Suspected regions of tree in bud type nodularity in the basilar right lower lobe, favoring an infectious/inflammatory bronchiolitis. 3. Mild right hilar adenopathy which is nonspecific and may be reactive in nature, though the possibility of malignancy cannot be excluded especially given the severe emphysema. Follow-up CT in 2-3 months may be helpful to assess for persistence, which would increase concern for a malignant process. VTE: negative DICTATED BY: Philip Bean MD DATE/TIME DICTATED:07/18/173 IMPRESSION This is a 62-year-old thin/lean woman with a past medical history significant for smoking(for more than 30 years), history of anxiety depression, migraine presented to the ED this morning with chief complaints of worsening shortness of breath and cough ISSUES Acute hypoxic and mild hypercarbic resp failure due to ACOPDE with pna Rt sided PNA Rt hilar lymphadenopathy and would need short term follow up with ct COPD cachexia Prob sig osteoporosis ANxiety and depression Sig smoking history REC Sputum culture Steroids at 80 mg for two more days and taper in 14 days Keep hob up Cont abx for now NEbs atc Pt counselled about smoking cessation WIll follow closely Pt is aware of follow ct etc will follow with the team Consult Acknowledgment - Thank you for your consult request.
[2017-07-18 21:54] VITALS: BP 130/74
[2017-07-19 06:31] VITALS: BP 128/70
--- NOTE | 2017-07-19 07:21 | PN- Housestaff ---
Subjective Follow-up For: PNA COPD exacerbation Subjective: I have seen and examined the patient. she is in respiratroy distress. ABG showed ph 7.30 with co2 61. per pulm consultation patient will be transferred to ICU, on bipap machine. family updated Review of Systems Constitutional: Reports: see HPI. Objective Last 24 Hrs of Vital Signs/I&O Vital Signs Date Time Temp Pulse Resp B/P B/P Pulse O2 O2 Flow FiO2 Mean Ox Delivery Rate 07/19 0803 92 Nasal 6.0L Cannula 07/19 0800 90 Nasal 6.0L Cannula 07/19 0631 97.9 103 20 128/70 98 07/19 0540 95 Nasal 6.0L Cannula 07/19 0000 Nasal 4.0L Cannula 07/18 2154 98.8 91 18 130/74 94 07/18 1700 99 Nasal 6.0L Cannula 07/18 1600 Nasal 4.0L Cannula 07/18 1430 97.8 92 18 122/74 94 Nasal 4.5L Cannula Intake & Output 07/19 1600 07/19 0800 07/19 0000 Intake Total 550 Output Total 400 350 Balance 150 -350 Intake, IV 310 Intake, Oral 240 Number 0 Bowel Movements Output, Urine 400 350 Physical Exam General Appearance: Alert, Oriented X3, Severe Distress Cardiovascular: tachcardia Lungs: decreased breath sounds BL with wheezing Extremities: No Clubbing, No Cyanosis, No Edema Current Medications: Current Medications Sig/Luma Start time Last Medication Dose Route Stop Time Status Admin Acetaminophen 650 MG Q6P PRN 07/18 0830 AC 07/18 PO 1157 Acetaminophen 1,000 MG Q6P PRN 07/18 0830 AC IV Albuterol Sulfate 3 ML EVERY 4 HRS/AWAKE 07/18 1200 AC 07/19 INH 0803 Alprazolam 0.25 MG Q12P PRN 07/18 0845 DC 07/19 PO 07/25 0844 0128 Azithromycin 500 MG Q24H 07/19 0530 AC 07/19 Sodium Chloride 250 ML IV 0519 Azithromycin 500 MG Q24H 07/19 0500 DC Sodium Chloride 250 ML IV Ceftriaxone Sodium 1,000 MG Q24H 07/19 0500 DC IV Ceftriaxone Sodium 1,000 MG Q24H 07/19 0500 AC 07/19 IV 0519 Enoxaparin Sodium 40 MG DAILY 07/18 1000 AC 07/19 SC 1031 Guaifenesin 600 MG Q12 07/18 2222 AC 07/18 PO 2236 Guaifenesin 10 ML Q6P PRN 07/18 0830 AC PO Methylprednisolone 40 MG Q8 07/19 1400 AC IV Methylprednisolone 40 MG Q12 07/18 1000 DC 07/19 IV 0808 Morphine Sulfate 2 MG ONCE ONE 07/19 0845 DC 07/19 IV 07/19 0846 0850 Ondansetron HCl 4 MG ONCE ONE 07/19 0600 DC IV 07/19 0601 Oxycodone HCl 5 MG Q8P PRN 07/18 0830 DC 07/18 PO 1905 Paroxetine HCl 50 MG 2200 07/18 2200 AC 07/18 PO 2236 Paroxetine HCl 50 MG DAILY 07/18 1000 DC PO Sumatriptan Succinate 50 MG DAILY NEEDED PRN 07/18 0915 DC 07/19 PO 0518 Last 24 Hrs of Lab/Gamaliel Results Last 24 Hrs of Labs/Mics: Laboratory Tests 07/19/17 0830: pH 7.30 *L, pCO2 61 *H, pO2 107 H, HCO3 29 H, ABG O2 Sat (Measured) 98.0, Carboxyhemoglobin 1.2 L, O2 Concentration % 6L, O2 Delivery Method NC, Phlebotomy Draw Site RIGHT RADIAL 07/19/17 0750: Anion Gap 7, Estimated GFR > 60, BUN/Creatinine Ratio 52.5 H, Troponin I Pending, CBC w Diff Pending, WBC Pending, RBC Pending, Hgb Pending, Hct Pending, MCV Pending, MCH Pending, RDW Pending, Plt Count Pending, MPV Pending, Gran % Pending, Lymphocytes % Pending, Monocytes % Pending, Eosinophils % Pending, Basophils % Pending, Absolute Granulocytes Pending, Absolute Lymphocytes Pending , Absolute Monocytes Pending, Absolute Eosinophils Pending, Absolute Basophils Pending, PUBS MCHC Pending Microbiology 07/19 943 GI: Surveillance Culture - ORD 07/19 930 UPPER RESP: Surveillance Culture - RECD 07/18 1613 URINE ROUT: Legionella Antigen - COMP 07/18 1613 URINE ROUT: Streptococcus pneumoniae Antigen (M - COMP Assessment/Plan Assessment: Patient is a 62-year-old thin/lean woman with a past medical history significant for smoking(for more than 30 years), history of anxiety depression, migraine presented to the ED this morning with chief complaints of worsening shortness of breath and cough. Initial vitals on admission: Impression 98.8, pulse 100, blood pressure 200/80 now 126/78, RR: 13 now 18 saturating around 90-93% initially on 2 L now on 4.5 L. Pertinent labs on admission and no evidence of leukocytosis H&H stable normal BEP. First set of troponin negative, EKG pending ABG normal pH 7.37, PCO2 43 with PO2: 71 Chest x-ray : Hazy opacity within the right midlung could reflect developing pneumonia. In the ER she was found to be in respiratory distress desaturating to 79%, improved to 91% on 2 L. After receiving DuoNeb treatment with IV steroids and antibiotics, patient felt better. At the time of evaluation in the morning at around 8 AM, patient was having hard time in breathing denied any chest discomfort or palpitations. She was given another 1 of treatment and oxygen was increased to 4.5 L through nasal cannula. Chest x-ray is evident for developing right mid-level pneumonia CTA ruled out PE patient had an episode of respiratoy distress with hypercarbic hypoxia in the morning assessment and plan: Plan : #.Acute hypoxic respiratory failure due to Right midlung pneumonia and COPD exacerbation * transfer ICU and put the patient on BiPAP and stat chest x-ray * Continue IV ceftriaxone and azithromycin with IV Solu-Medrol 40 mg every 8 * Blood culture, sputum culture, strep and Legionella antigen so far negative * Avoid intubation * May have low-dose morphine if develops respiratory distress prn * No other narcotics or benzos allowed * Smoking cessation counseling has been done * Start nicotine patch. #History of anxiety and depression with migraine/FTT, cachexia * HOLD imiterex and beznos * c/w SSRI * May benefit from nutrition consult DVT prophylaxis subcutaneous Lovenox Patient is full code Problem List: 1. COPD exacerbation 2. Pneumonia Pain Ratin Pain Location: no pain Pain Goal: Pain 4 or less Pain Plan: same Tomorrow's Labs & Rationales: cbc bep
[2017-07-19 09:36] LABS: ABSOLUTE BASOPHIL COUNT 0 /CUMM (0.0-0.2); ABSOLUTE EOSINOPHIL COUNT 0 /CUMM (0.0-0.7); ABSOLUTE GRANULOCYTE CT 8.2 /CUMM (1.4-6.5); ABSOLUTE LYMPH COUNT 0.4 /CUMM (1.2-3.4); ABSOLUTE MONOCYTE COUNT 0.7 /CUMM (0.10-0.60); BASOPHIL % 0.1 % (0.0-2.0); EOSINOPHIL % 0 % (0-5); GRANULOCYTE % 87.5 % (42.2-75.2); MEAN CORPUSCULAR HGB 31.9 PG (27.0-31.0); MEAN CORPUSCULAR HGB CONC 33.2 G/DL (33.0-37.0); MEAN PLATELET VOLUME 7.4 FL (7.4-10.4); PLATELET COUNT 277 /CUMM (130-400); RBC DISTRIBUTION WIDTH 14.5 % (11.5-14.5); RED BLOOD CELL CT 4.37 /CUMM (4.20-5.40); WHITE BLOOD CELL COUNT 9.4 /CUMM (4.8-10.8)
--- NOTE | 2017-07-19 09:55 | PN- CRCU ---
Subjective HPI/Critical Care Issues: Events data reviewed events and data reviewed Patient became significantly worse over the night. This morning she was found to be in significant respiratory failure and was transferred to the ICU for hypercarbic respiratory failure with worsening overall status. The PCO2 was quite elevated. Patient received 1 dose of morphine and subsequently was treated with BiPAP in the ICU and she feels much better. No worsening cough or fever noted on the floor. Objective Current Medications: Current Medications Sig/Luma Start time Last Medication Dose Route Stop Time Status Admin Acetaminophen 650 MG Q6P PRN 07/18 0830 AC 07/18 PO 1157 Acetaminophen 1,000 MG Q6P PRN 07/18 0830 AC IV Albuterol Sulfate 3 ML EVERY 4 HRS/AWAKE 07/18 1200 AC 07/19 INH 0803 Alprazolam 0.25 MG Q12P PRN 07/18 0845 DC 07/19 PO 07/25 0844 0128 Azithromycin 500 MG Q24H 07/19 0530 AC 07/19 Sodium Chloride 250 ML IV 0519 Azithromycin 500 MG Q24H 07/19 0500 DC Sodium Chloride 250 ML IV Ceftriaxone Sodium 1,000 MG Q24H 07/19 0500 DC IV Ceftriaxone Sodium 1,000 MG Q24H 07/19 0500 AC 07/19 IV 0519 Enoxaparin Sodium 40 MG DAILY 07/18 1000 AC 07/18 SC 1103 Guaifenesin 600 MG Q12 07/18 2222 AC 07/18 PO 2236 Guaifenesin 10 ML Q6P PRN 07/18 0830 AC PO Methylprednisolone 40 MG Q8 07/19 1400 AC IV Methylprednisolone 40 MG Q12 07/18 1000 DC 07/19 IV 0808 Morphine Sulfate 2 MG ONCE ONE 07/19 0845 DC 07/19 IV 07/19 0846 0850 Ondansetron HCl 4 MG ONCE ONE 07/19 0600 DC IV 07/19 0601 Oxycodone HCl 5 MG Q8P PRN 07/18 0830 DC 07/18 PO 1905 Paroxetine HCl 50 MG 2200 07/18 2200 AC 07/18 PO 2236 Paroxetine HCl 50 MG DAILY 07/18 1000 DC PO Sumatriptan Succinate 50 MG DAILY NEEDED PRN 07/18 0915 DC 07/19 PO 0518 Vital Signs & I&O Last 24 Hrs of Vitals and I&O: Vital Signs Date Time Temp Pulse Resp B/P B/P Pulse O2 O2 Flow FiO2 Mean Ox Delivery Rate 07/19 0803 92 Nasal 6.0L Cannula 07/19 0800 90 Nasal 6.0L Cannula 07/19 0631 97.9 103 20 128/70 98 07/19 0540 95 Nasal 6.0L Cannula 07/19 0000 Nasal 4.0L Cannula 07/18 2154 98.8 91 18 130/74 94 07/18 1700 99 Nasal 6.0L Cannula 07/18 1600 Nasal 4.0L Cannula 07/18 1430 97.8 92 18 122/74 94 Nasal 4.5L Cannula 07/18 1028 Nasal 4.0L Cannula Intake & Output 07/19 1600 07/19 0800 07/19 0000 Intake Total 550 Output Total 400 350 Balance 150 -350 Intake, IV 310 Intake, Oral 240 Number 0 Bowel Movements Output, Urine 400 350 Laboratory Tests 07/19 07/19 0830 0750 Blood Gas pH (7.35 - 7.45 PH) 7.30 *L pCO2 (35 - 45 TORR) 61 *H pO2 (80 - 100 TORR) 107 H HCO3 (21 - 28 MEQ/L) 29 H ABG O2 Sat (Measured) (>96.0 %) 98.0 Carboxyhemoglobin (1.5 - 5.0 %) 1.2 L O2 Concentration % 6L O2 Delivery Method NC Chemistry Sodium Pending Potassium Pending Chloride Pending Carbon Dioxide Pending Anion Gap Pending BUN Pending Creatinine Pending BUN/Creatinine Ratio Pending Troponin I Pending Hematology CBC w Diff Pending WBC Pending RBC Pending Hgb Pending Hct Pending MCV Pending MCH Pending RDW Pending Plt Count Pending MPV Pending PUBS MCHC Pending Miscellaneous Phlebotomy Draw Site RIGHT RADIAL 07/18 07/18 0450 0420 Blood Gas pH (7.35 - 7.45 PH) 7.37 pCO2 (35 - 45 TORR) 43 pO2 (80 - 100 TORR) 71 L HCO3 (21 - 28 MEQ/L) 24 ABG O2 Sat (Measured) (>96.0 %) 90.0 L Carboxyhemoglobin (1.5 - 5.0 %) 3.4 O2 Concentration % 2LPM O2 Delivery Method NC Chemistry Sodium (137 - 145 mmol/L) 144 Potassium (3.5 - 5.1 mmol/L) 4.2 Chloride (98 - 107 mmol/L) 107 Carbon Dioxide (22 - 30 mmol/L) 27 Anion Gap (5 - 16) 10 BUN (7 - 17 mg/dL) 23 H Creatinine (0.5 - 1.0 mg/dL) 0.4 L Estimated GFR (>60 ml/min) > 60 BUN/Creatinine Ratio (7 - 25 %) 57.5 H Glucose (65 - 99 mg/dL) 142 H Calcium (8.4 - 10.2 mg/dL) 9.5 Total Bilirubin (0.2 - 1.3 mg/dL) 0.3 AST (14 - 36 U/L) 26 ALT (9 - 52 U/L) 29 Alkaline Phosphatase (<127 U/L) 75 Troponin I (< 0.11 ng/ml) < 0.01 Xig-[id number] Pept (<125 pg/mL) 100 Total Protein (6.3 - 8.2 g/dL) 6.1 L Albumin (3.5 - 5.0 g/dL) 3.6 Globulin (1.9 - 4.2 gm/dL) 2.5 Albumin/Globulin Ratio (1.1 - 2.2 %) 1.4 Hematology CBC w Diff MAN DIFF ORDERED WBC (4.8 - 10.8 /CUMM) 8.9 RBC (4.20 - 5.40 /CUMM) 4.43 Hgb (12.0 - 16.0 G/DL) 14.0 Hct (37 - 47 %) 42.4 MCV (81.0 - 99.0 FL) 95.6 MCH (27.0 - 31.0 PG) 31.5 H RDW (11.5 - 14.5 %) 14.7 H Plt Count (130 - 400 /CUMM) 307 MPV (7.4 - 10.4 FL) 7.0 L Gran % (42.2 - 75.2 %) 90.5 H Lymphocytes % (20.5 - 51.1 %) 4.1 L Monocytes % (1.7 - 9.3 %) 5.1 Eosinophils % (0 - 5 %) 0 Basophils % (0.0 - 2.0 %) 0.3 Absolute Granulocytes (1.4 - 6.5 /CUMM) 8.1 H Segmented Neutrophils (42.2 - 75.2 %) 95 H Absolute Lymphocytes (1.2 - 3.4 /CUMM) 0.4 L Lymphocytes (20.5 - 51.1 %) 4 L Monocytes (1.7 - 9.3 %) 1 L Absolute Monocytes (0.10 - 0.60 /CUMM) 0.5 Absolute Eosinophils (0.0 - 0.7 /CUMM) 0 Absolute Basophils (0.0 - 0.2 /CUMM) 0 Platelet Estimate (ADEQUATE) ADEQUATE Normocytic RBCs VERIFIED Normochromic RBCs VERIFIED PUBS MCHC (33.0 - 37.0 G/DL) 32.9 L Miscellaneous Phlebotomy Draw Site RIGHT BRACHIAL Other Body Source Fld Total RBCs Counted (%) 100 Microbiology Date/Time Procedure - Status Source Growth 07/19 943 Surveillance Culture - ORD UPPER RESP 07/19 943 Surveillance Culture - ORD GI 07/18 161 Legionella Antigen - COMP URINE ROUT 07/18 161 Streptococcus pneumoniae Antigen (M - COMP URINE ROUT 07/18 0828 Respiratory Culture - COLB LOWER RESP 07/18 08 Gram Stain - COLB LOWER RESP 07/18 0714 Influenza Virus A & B Rapid Smear - COMP NASOPHARYN 07/18 0450 Blood Culture - RECD BLOOD 07/18 0448 Blood Culture - RECD BLOOD Impression/Plan Impression/Plan Impression/Plan: General Appearance Alert, Mild Distress, on bipap Skin No Rashes, No Breakdown Skin Temp/Moisture Exam: Warm/D Sepsis Skin Exam (color): Normal for Ethnicity HEENT Atraumatic, PERRLA, EOMI Neck Supple, No JVD Cardiovascular Regular Rate, Normal S1, Normal S2 Lungs decreased breath sounds bilaterally with wheezing Abdomen Normal Bowel Sounds, Soft, No Tenderness Neurological Normal Gait, Normal Speech Extremities No Clubbing, No Cyanosis, No Edema Vascular Normal Pulses, Pulses Symmetrical CT CHEST IMPRESSION: 1. No pulmonary embolus identified. 2. Severe upper lobe predominant emphysema. Suspected regions of tree in bud type nodularity in the basilar right lower lobe, favoring an infectious/inflammatory bronchiolitis. 3. Mild right hilar adenopathy which is nonspecific and may be reactive in nature, though the possibility of malignancy cannot be excluded especially given the severe emphysema. Follow-up CT in 2-3 months may be helpful to assess for persistence, which would increase concern for a malignant process. VTE: negative DICTATED BY: Philip Bean MD DATE/TIME DICTATED:12/27/17 / 1133 IMPRESSION This is a 62-year-old thin/lean woman with a past medical history significant for smoking(for more than 30 years), history of anxiety depression, migraine presented to the ED this morning with chief complaints of worsening shortness of breath and cough ISSUES Acute hypoxic and hypercarbic resp failure due to ACOPDE with pna now in icu Rt sided PNA Rt hilar lymphadenopathy and would need short term follow up with ct COPD cachexia Prob sig osteoporosis ANxiety and depression Sig smoking history REC ICU transfer BIPAP this am and when stable can come off bipap for few hrs on and off and needs bipap tonight Sputum culture if any IV steroids 40 qr and reduce to 40 q12 iv morphine or sub cut morphine 1-2 mg for dyspnea q4 hrs Avoid benzo ABG only if she is lethargic if not use clinical judgement Keep hob up Cont abx NEbs atc Pt counselled about smoking cessation WIll follow closely Pt is aware of follow ct etc will follow with the team Pt is critically ill tts 40 mins
--- NOTE | 2017-07-19 10:08 | RADIOLOGY REPORT ---
EXAMINATION: XR PORTABLE CHEST CLINICAL INFORMATION: Follow-up pneumonia COMPARISON: Chest x-ray 07/18/2017 TECHNIQUE: Portable frontal view of the chest was obtained. FINDINGS: Lungs remain hyperinflated with flattening of the diaphragms. Heart size is normal. Pulmonary vascularity is normal. There is diffuse interstitial prominence throughout the lung farfan which may be chronic. There is some linear atelectasis in the right upper lobe. No focal area of dense consolidation is identified. There is no pneumothorax or significant pleural effusion seen at this time. IMPRESSION: Changes of chronic obstructive disease with hyperinflated lungs and interstitial prominence throughout. No pneumothorax or focal area of dense consolidation is seen at this time. Some linear atelectasis in the right lung apex.
[2017-07-19 16:00] VITALS: BP 110/58
[2017-07-20] VITALS: BP 128/86
[2017-07-20 05:58] LABS: ABSOLUTE BASOPHIL COUNT 0 /CUMM (0.0-0.2); ABSOLUTE EOSINOPHIL COUNT 0 /CUMM (0.0-0.7); ABSOLUTE GRANULOCYTE CT 3.9 /CUMM (1.4-6.5); ABSOLUTE LYMPH COUNT 0.5 /CUMM (1.2-3.4); ABSOLUTE MONOCYTE COUNT 0.6 /CUMM (0.10-0.60); BASOPHIL % 0.1 % (0.0-2.0); EOSINOPHIL % 0 % (0-5); GRANULOCYTE % 76.7 % (42.2-75.2); HEMATOCRIT 38.9 % (37-47); MEAN CORPUSCULAR HGB 32.3 PG (27.0-31.0); MEAN CORPUSCULAR HGB CONC 33.4 G/DL (33.0-37.0); MEAN CORPUSCULAR VOLUME 96.8 FL (81.0-99.0); MEAN PLATELET VOLUME 7.3 FL (7.4-10.4); PLATELET COUNT 234 /CUMM (130-400); RBC DISTRIBUTION WIDTH 14.7 % (11.5-14.5); RED BLOOD CELL CT 4.01 /CUMM (4.20-5.40)
[2017-07-20 08:00] VITALS: BP 116/66
--- NOTE | 2017-07-20 10:23 | PN- Resident CRCU ---
Subjective HPI/CRCU Issues: * Acute hypoxic respiratory failure due to COPD exacerbation and pneumonia on BIPAP * Right midlung pneumonia * Right hilar lymphadenopathy * History of anxiety and depression with migraine/FTT * cachexia 24 Hour Events: Patient was transferred to ICU yesterday due to significant worsening of respiratory status/acute hypoxic hypercarbic respiratory failure. She has been put on BiPAP and has been doing good since then. No fevers, cough, chest pain, palpitations or any other complaints. Objective Vital Signs & I&O Last 8 Hrs of Vitals and I&O: J Exam General Appearance: well developed/nourished, alert, awake, comfortable, cachetic Head: atraumatic Ears, Nose, Throat: on high flow Neck: normal inspection Respiratory: diminished breath sounds bilaterally, no wheezing heard Cardiovascular: regular rate/rhythm Gastrointestinal: normal bowel sounds, soft Extremities: normal inspection, no edema Current Medications: Current Medications Sig/Luma Start time Last Medication Dose Route Stop Time Status Admin Acetaminophen 650 MG Q6P PRN 07/18 0830 AC 07/18 PO 1157 Acetaminophen 1,000 MG Q6P PRN 07/18 0830 AC IV Albuterol Sulfate 3 ML EVERY 4 HRS/AWAKE 07/18 1200 AC 07/20 INH 0753 Azithromycin 500 MG Q24H 07/19 0530 07/20 Sodium Chloride 250 ML IV 0508 Ceftriaxone Sodium 1,000 MG Q24H 07/19 0500 AC 07/20 IV 0508 Dextrose/Sodium 1,000 ML Q20H 07/19 1430 07/20 Chloride IV 0132 Dextrose/Water 1,000 ML Q20H 07/19 1415 DC 07/19 IV 1615 Enoxaparin Sodium 40 MG DAILY 07/18 1000 07/20 SC 0947 Guaifenesin 600 MG Q12 07/18 2222 AC 07/20 PO 0947 Guaifenesin 10 ML Q6P PRN 07/18 0830 AC PO Methylprednisolone 40 MG Q8 07/19 1400 AC 07/20 IV 0508 Morphine Sulfate 10 MG .STK-MED ONE 07/19 1450 DC IV 07/19 1451 Morphine Sulfate 0.5 MG Q4 HRS NEEDED PRN 07/19 1045 07/20 IV 0523 Paroxetine HCl 50 MG 2200 07/18 2200 AC 07/19 PO 2134 Impression/Plan Impression/Problem List Impression: Patient is a 62-year-old thin/lean woman with a past medical history significant for smoking(for more than 30 years), history of anxiety depression, migraine presented to the ED this morning with chief complaints of worsening shortness of breath and cough. Patient was transferred to ICU yesterday due to significant worsening of respiratory status/acute hypoxic hypercarbic respiratory failure. She has been put on BiPAP and has been doing good since then. No fevers, cough, chest pain, palpitations or any other complaints. CXR(07/19/2017): Shows Changes of chronic obstructive disease with hyperinflated lungs and interstitial prominence throughout. No pneumothorax or focal area of dense consolidation is seen at Some linear atelectasis in the right lung apex. ABG 07/19/2017: 7.34/57/106/30( prior to BiPAP) Assessment * Acute hypoxic respiratory failure due to COPD exacerbation and pneumonia on BIPAP * Right midlung pneumonia * Right hilar lymphadenopathy * History of anxiety and depression with migraine/FTT * cachexia Plan * Patient on high flow at this time. BiPAP as needed, BiPAP overnight * We will reduce IV steroids to 40 every 12 today * IV morphine 1 mg every 4 hours when necessary for dyspnea * Continued on ceftriaxone and azithromycin * Blood culture, sputum culture, strep and Legionella antigen so far negative * AvoidNo other narcotics or benzos * Smoking cessation counseling has been done * On nicotine patch. * HOLD imiterex and beznos * c/w SSRI * May benefit from nutrition consult * DVT prophylaxis subcutaneous Lovenox * Full code Problem List: 1. Pneumonia 2. COPD exacerbation Pain Ratin Pain Location: na Tomorrow's Labs & Rationales: icu bundle ..elevated lfts's Plan DVT/Prophylaxis: mechanical
--- NOTE | 2017-07-20 10:25 | PN- CRCU ---
Subjective HPI/Critical Care Issues: Better on high flow oxygen Was on bipap last night fatigue Objective Current Medications: Current Medications Sig/Luma Start time Last Medication Dose Route Stop Time Status Admin Acetaminophen 650 MG Q6P PRN 07/18 0830 AC 07/18 PO 1157 Acetaminophen 1,000 MG Q6P PRN 07/18 0830 AC IV Albuterol Sulfate 3 ML EVERY 4 HRS/AWAKE 07/18 1200 AC 07/20 INH 0753 Azithromycin 500 MG Q24H 07/19 0530 AC 07/20 Sodium Chloride 250 ML IV 0508 Ceftriaxone Sodium 1,000 MG Q24H 07/19 0500 AC 07/20 IV 0508 Dextrose/Sodium 1,000 ML Q20H 07/19 1430 AC 07/20 Chloride IV 0132 Dextrose/Water 1,000 ML Q20H 07/19 1415 DC 07/19 IV 1615 Enoxaparin Sodium 40 MG DAILY 07/18 1000 AC 07/20 SC 0947 Guaifenesin 600 MG Q12 07/18 2222 AC 07/20 PO 0947 Guaifenesin 10 ML Q6P PRN 07/18 0830 AC PO Methylprednisolone 40 MG Q8 07/19 1400 AC 07/20 IV 0508 Morphine Sulfate 10 MG .STK-MED ONE 07/19 1450 DC IV 07/19 1451 Morphine Sulfate 0.5 MG Q4 HRS NEEDED PRN 07/19 1045 07/20 IV 0523 Paroxetine HCl 50 MG 2200 07/18 2200 AC 07/19 PO 2134 Vital Signs & I&O Last 24 Hrs of Vitals and I&O: Vital Signs Date Time Temp Pulse Resp B/P B/P Pulse O2 O2 Flow FiO2 Mean Ox Delivery Rate 07/20 0905 95 Nasal 50% Cannula 07/20 0903 93 96 07/20 0800 94 Nasal 50% Cannula 07/20 0800 97.8 76 20 116/66 97 Nasal 50% Cannula 07/20 0546 85 97 07/20 0422 94 BIPAP 40% 07/20 0337 73 95 07/20 0041 72 95 07/20 0000 94 BIPAP 40% 07/20 0000 97.5 76 22 128/86 94 BIPAP 40% 07/19 2304 73 94 07/19 2000 94 BIPAP 40% 07/199 83 96 07/19 165 97 BIPAP 40% 12/28 1657 84 97 07/19 1600 96 BIPAP 40% 07/19 1600 98.8 88 22 110/58 96 BIPAP 40% 07/19 1408 87 94 07/19 1200 96 BIPAP 45% Intake & Output 07/20 1600 07/20 0800 07/20 0000 Intake Total 467 387 Output Total 360 220 Balance 107 167 Intake, IV 437 327 Intake, Oral 30 60 Output, Urine 360 220 Impression/Plan Impression/Plan Impression/Plan: General Appearance Alert, Mild Distress, on high benedict Skin No Rashes, No Breakdown Skin Temp/Moisture Exam: Warm/D Sepsis Skin Exam (color): Normal for Ethnicity HEENT Atraumatic, PERRLA, EOMI Neck Supple, No JVD Cardiovascular Regular Rate, Normal S1, Normal S2 Lungs decreased breath sounds bilaterally with wheezing Abdomen Normal Bowel Sounds, Soft, No Tenderness Neurological Normal Gait, Normal Speech Extremities No Clubbing, No Cyanosis, No Edema Vascular Normal Pulses, Pulses Symmetrical CT CHEST IMPRESSION: 1. No pulmonary embolus identified. 2. Severe upper lobe predominant emphysema. Suspected regions of tree in bud type nodularity in the basilar right lower lobe, favoring an infectious/inflammatory bronchiolitis. 3. Mild right hilar adenopathy which is nonspecific and may be reactive in nature, though the possibility of malignancy cannot be excluded especially given the severe emphysema. Follow-up CT in 2-3 months may be helpful to assess for persistence, which would increase concern for a malignant process. VTE: negative DICTATED BY: Philip Bean MD DATE/TIME DICTATED:07/18/173 ABG after bipap noted, 7.34/57/106 on 45 percent oxygen IMPRESSION This is a 62-year-old thin/lean woman with a past medical history significant for smoking(for more than 30 years), history of anxiety depression, migraine presented to the ED this morning with chief complaints of worsening shortness of breath and cough ISSUES Slowly resolving Acute hypoxic and hypercarbic resp failure due to ACOPDE with pna now in icu Rt sided PNA Rt hilar lymphadenopathy and would need short term follow up with ct COPD cachexia Prob sig osteoporosis ANxiety and depression Sig smoking history REC Cont high flow and try to change to nasal cannula and keep sat at 92 BIPAP at hs if tolerated IV steroids 40 q12 and change to po prednisone 50 mg in am iv morphine or sub cut morphine 1-2 mg for dyspnea q4 hrs Avoid benzo ABG only if she is lethargic if not use clinical judgement Keep hob up Cont abx can dc sally after today NEbs atc OOB to chair today Pt counselled about smoking cessation WIll follow closely Pt is aware of follow ct etc will follow with the team Pt is critically ill tts 39 mins
[2017-07-20 16:33] VITALS: BP 111/59
[2017-07-21] VITALS: BP 102/64
[2017-07-21 05:59] LABS: ABSOLUTE BASOPHIL COUNT 0 /CUMM (0.0-0.2); ABSOLUTE EOSINOPHIL COUNT 0 /CUMM (0.0-0.7); ABSOLUTE LYMPH COUNT 0.5 /CUMM (1.2-3.4); ABSOLUTE MONOCYTE COUNT 0.4 /CUMM (0.10-0.60); BASOPHIL % 0 % (0.0-2.0); EOSINOPHIL % 0 % (0-5); GRANULOCYTE % 87.3 % (42.2-75.2); HEMATOCRIT 38.2 % (37-47); MEAN CORPUSCULAR HGB 32.2 PG (27.0-31.0); MEAN CORPUSCULAR VOLUME 97.4 FL (81.0-99.0); MEAN PLATELET VOLUME 7.3 FL (7.4-10.4); PLATELET COUNT 217 /CUMM (130-400); RBC DISTRIBUTION WIDTH 14.3 % (11.5-14.5); RED BLOOD CELL CT 3.93 /CUMM (4.20-5.40); WHITE BLOOD CELL COUNT 6.8 /CUMM (4.8-10.8)
[2017-07-21 08:00] VITALS: BP 110/70
--- NOTE | 2017-07-21 08:48 | PN- Resident CRCU ---
Subjective HPI/CRCU Issues: Acute hypoxic respiratory failure due to COPD exacerbation and pneumonia on BIPAP * Right midlung pneumonia * Right hilar lymphadenopathy * History of anxiety and depression with migraine/FTT * cachexia 24 Hour Events: I have seen and examined the patine.t off bipap pn 3 L oxyge, getting clinically better overall. T 99,BP 110-95/55-60/ on 3 L oxygen off bipap input 1677 output 1325 Objective Vital Signs & I&O Last 8 Hrs of Vitals and I&O: . Exam General Appearance: well developed/nourished, no apparent distress, alert, awake , cachetic Other Physical Findings: Head: atraumatic Ears, Nose, Throat: on high flow Neck: normal inspection Respiratory: diminished breath sounds bilaterally, mild wheezing heard Cardiovascular: regular rate/rhythm Gastrointestinal: normal bowel sounds, soft Extremities: normal inspection, no edema Impression/Plan Impression/Problem List Impression: Patient is a 62-year-old thin/lean woman with a past medical history significant for smoking(for more than 30 years), history of anxiety depression, migraine presented to the ED this morning with chief complaints of worsening shortness of breath and cough. Patient was transferred to ICU yesterday due to significant worsening of respiratory status/acute hypoxic hypercarbic respiratory failure. She has been put on BiPAP and has been doing good since then. No fevers, cough, chest pain, palpitations or any other complaints. CXR(07/19/2017): Shows Changes of chronic obstructive disease with hyperinflated lungs and interstitial prominence throughout. No pneumothorax or focal area of dense consolidation is seen at Some linear atelectasis in the right lung apex. ABG 07/19/2017: 7.34/57/106/30( prior to BiPAP) Assessment * Acute hypoxic respiratory failure due to COPD exacerbation and pneumonia on BIPAP * Right midlung pneumonia * Right hilar lymphadenopathy * History of anxiety and depression with migraine/FTT * cachexia Plan * BiPAP as needed. on 4 L oxygen * PO prednisone 50 mg daily * IV morphine 1 mg every 4 hours when necessary for dyspnea * Continued on ceftriaxone and azithromycin * Blood culture, sputum culture, strep and Legionella antigen so far negative * No other narcotics or benzos * Smoking cessation counseling has been done * On nicotine patch. * HOLD imiterex and beznos * c/w SSRI * May benefit from nutrition consult * d/c fluids * may be downgraded to telemetry * TRC ATC and symbicort 160 BID * DVT prophylaxis subcutaneous Lovenox * Full code Problem List: 1. Pneumonia 2. COPD exacerbation Pain Ratin Tomorrow's Labs & Rationales: cbc icu bundle Plan DVT/Prophylaxis: mechanical
--- NOTE | 2017-07-21 11:07 | PN- CRCU ---
Subjective HPI/Critical Care Issues: Improved and better Anxious and has mild head ache Did use bipap at hs Objective Current Medications: Current Medications Sig/Luma Start time Last Medication Dose Route Stop Time Status Admin Acetaminophen 650 MG Q6P PRN 07/18 0830 AC 07/21 PO 0932 Acetaminophen 1,000 MG Q6P PRN 07/18 0830 AC IV Albuterol Sulfate 3 ML EVERY 4 HRS/AWAKE 07/18 1200 AC 07/21 INH 0813 Alprazolam 0.25 MG ONCE ONE 07/20 2230 DC 07/20 PO 07/20 2231 2228 Azithromycin 500 MG Q24H 07/19 0530 DC 07/20 Sodium Chloride 250 ML IV 07/20 2350 0508 Ceftriaxone Sodium 1,000 MG Q24H 07/19 0500 AC 07/21 IV 0509 Dextrose/Sodium 1,000 ML Q20H 07/19 1430 AC 07/21 Chloride IV 0034 Enoxaparin Sodium 40 MG DAILY 07/18 1000 AC 07/21 SC 0922 Guaifenesin 600 MG Q12 07/18 2222 AC 07/20 PO 2210 Guaifenesin 10 ML Q6P PRN 07/18 0830 AC PO Methylprednisolone 40 MG Q12 07/20 2200 DC 07/20 IV 07/20 2355 2210 Methylprednisolone 40 MG Q8 07/19 1400 DC 07/20 IV 0508 Morphine Sulfate 0.5 MG Q4 HRS NEEDED PRN 07/19 1045 AC 07/20 IV 1800 Paroxetine HCl 50 MG 2200 07/18 2200 AC 07/20 PO 2210 Prednisone 50 MG DAILY 07/21 1000 AC 07/21 PO 0922 Vital Signs & I&O Last 24 Hrs of Vitals and I&O: Vital Signs Date Time Temp Pulse Resp B/P B/P Pulse O2 O2 Flow FiO2 Mean Ox Delivery Rate 07/21 0816 100 BIPAP 40% 07/21 0815 69 100 07/21 0555 65 97 07/21 0400 96 BIPAP 40% 07/21 0317 67 96 07/21 0020 72 96 07/21 0000 97 BIPAP 40% 07/21 0000 97.9 70 22 102/64 95 BIPAP 40% 07/20 2250 74 95 07/20 2000 94 Nasal 40% Cannula 07/20 1732 96 Nasal 40% Cannula 07/20 1633 98.7 77 21 111/59 95 Nasal 40% Cannula 07/20 1600 95 Nasal 40% Cannula 07/20 1200 94 Nasal 40% Cannula 07/20 1149 95 Nasal 40% Cannula Intake & Output 07/21 1600 07/21 0800 07/21 0000 Intake Total 407 700 Output Total 350 400 Balance 57 300 Intake, IV 407 440 Intake, Oral 0 260 Number 0 0 Bowel Movements Output, Urine 350 400 Impression/Plan Impression/Plan Impression/Plan: General Appearance Alert, Mild Distress, on high benedict Skin No Rashes, No Breakdown Skin Temp/Moisture Exam: Warm/D Sepsis Skin Exam (color): Normal for Ethnicity HEENT Atraumatic, PERRLA, EOMI Neck Supple, No JVD Cardiovascular Regular Rate, Normal S1, Normal S2 Lungs decreased breath sounds bilaterally with wheezing Abdomen Normal Bowel Sounds, Soft, No Tenderness Neurological Normal Gait, Normal Speech Extremities No Clubbing, No Cyanosis, No Edema Vascular Normal Pulses, Pulses Symmetrical CT CHEST IMPRESSION: 1. No pulmonary embolus identified. 2. Severe upper lobe predominant emphysema. Suspected regions of tree in bud type nodularity in the basilar right lower lobe, favoring an infectious/inflammatory bronchiolitis. 3. Mild right hilar adenopathy which is nonspecific and may be reactive in nature, though the possibility of malignancy cannot be excluded especially given the severe emphysema. Follow-up CT in 2-3 months may be helpful to assess for persistence, which would increase concern for a malignant process. VTE: negative DICTATED BY: Philip Bean MD DATE/TIME DICTATED:07/18/171132 ABG after bipap noted, 7.34/57/106 on 45 percent oxygen IMPRESSION This is a 62-year-old thin/lean woman with a past medical history significant for smoking(for more than 30 years), history of anxiety depression, migraine presented to the ED this morning with chief complaints of worsening shortness of breath and cough ISSUES Slowly resolving Acute hypoxic and hypercarbic resp failure due to ACOPDE with pna now in icu, requiring bipap. Seems to have improved Rt sided PNA improving Rt hilar lymphadenopathy and would need short term follow up with ct COPD cachexia Prob sig osteoporosis ANxiety and depression Sig smoking history REC Cont nasal cannula and keep sat at 92 BIPAP can be held today and observe OOB to chair a must today Prednisone 50 mg in am iv morphine or sub cut morphine 1-2 mg for dyspnea q4 hrs only if needed Avoid benzos ABG only if she is lethargic if not use clinical judgement Keep hob up Cont abx NEbs atc, start symbicort 160 2 puff bid Pt counselled about smoking cessation WIll follow closely Pt is aware of follow ct etc will follow with the team Pt has been critically ill tts 36 mins If she continues to improve then can go to the floor later today, if not keep in icu Pt may benefit from jose admission or any other intensive pulm rehab
[2017-07-21 16:00] VITALS: BP 166/70
[2017-07-21 17:01] VITALS: BP 110/60
[2017-07-21 22:24] VITALS: BP 120/70
[2017-07-22 06:28] VITALS: BP 124/76
[2017-07-22 09:11] LABS: ABSOLUTE BASOPHIL COUNT 0 /CUMM (0.0-0.2); ABSOLUTE EOSINOPHIL COUNT 0 /CUMM (0.0-0.7); ABSOLUTE GRANULOCYTE CT 3.6 /CUMM (1.4-6.5); ABSOLUTE LYMPH COUNT 1.5 /CUMM (1.2-3.4); ABSOLUTE MONOCYTE COUNT 0.6 /CUMM (0.10-0.60); BASOPHIL % 0.3 % (0.0-2.0); EOSINOPHIL % 0.3 % (0-5); GRANULOCYTE % 62.4 % (42.2-75.2); HEMATOCRIT 39.5 % (37-47); MEAN CORPUSCULAR HGB 32.2 PG (27.0-31.0); MEAN CORPUSCULAR HGB CONC 33.2 G/DL (33.0-37.0); MEAN CORPUSCULAR VOLUME 96.9 FL (81.0-99.0); MEAN PLATELET VOLUME 7.2 FL (7.4-10.4); PLATELET COUNT 225 /CUMM (130-400); RED BLOOD CELL CT 4.07 /CUMM (4.20-5.40); WHITE BLOOD CELL COUNT 5.7 /CUMM (4.8-10.8)
--- NOTE | 2017-07-22 09:21 | PN- Housestaff ---
Assessment/Plan Assessment: Patient is a 62-year-old thin/lean woman with a past medical history significant for smoking(for more than 30 years), history of anxiety depression, migraine presented to the ED this morning with chief complaints of worsening shortness of breath and cough. Initial vitals on admission: Impression 98.8, pulse 100, blood pressure 200/80 now 126/78, RR: 13 now 18 saturating around 90-93% initially on 2 L now on 4.5 L. Pertinent labs on admission and no evidence of leukocytosis H&H stable normal BEP. First set of troponin negative, EKG pending ABG normal pH 7.37, PCO2 43 with PO2: 71 Chest x-ray : Hazy opacity within the right midlung could reflect developing pneumonia. In the ER she was found to be in respiratory distress desaturating to 79%, improved to 91% on 2 L. After receiving DuoNeb treatment with IV steroids and antibiotics, patient felt better. At the time of evaluation in the morning at around 8 AM, patient was having hard time in breathing denied any chest discomfort or palpitations. She was given another 1 of treatment and oxygen was increased to 4.5 L through nasal cannula. Chest x-ray is evident for developing right mid-level pneumonia CTA ruled out PE patient had an episode of respiratoy distress with hypercarbic hypoxia in the morning assessment and plan: Plan : #.Acute hypoxic respiratory failure due to Right midlung pneumonia and COPD exacerbation * transfer ICU and put the patient on BiPAP and stat chest x-ray * Continue IV ceftriaxone and azithromycin with IV Solu-Medrol 40 mg every 8 * Blood culture, sputum culture, strep and Legionella antigen so far negative * Avoid intubation * May have low-dose morphine if develops respiratory distress prn * No other narcotics or benzos allowed * Smoking cessation counseling has been done * Start nicotine patch. #History of anxiety and depression with migraine/FTT, cachexia * HOLD imiterex and beznos * c/w SSRI * May benefit from nutrition consult DVT prophylaxis subcutaneous Lovenox Patient is full code
--- NOTE | 2017-07-22 10:02 | PN- Housestaff ---
Subjective Follow-up For: -Acute hypoxic, hypercarbic respiratory failure 2/2 COPD exacerbation -Pneumonia Complaints: no complaints Subjective: Patient seen and examined, currently on 2L O2 nasal cannula, vitals stable Review of Systems Constitutional: Reports: no symptoms. Objective Last 24 Hrs of Vital Signs/I&O Vital Signs Date Time Temp Pulse Resp B/P B/P Pulse O2 O2 Flow FiO2 Mean Ox Delivery Rate 07/22 0909 96 Nasal 2.0L Cannula 07/22 0800 Nasal 2.0L Cannula 07/22 0628 98.0 74 18 124/76 98 Nasal 3.0L Cannula 07/22 0000 Nasal 3.0L Cannula 07/21 2224 98.1 78 20 120/70 99 BIPAP 07/21 2149 87 97 07/21 1701 97.9 98 20 110/60 93 Nasal Cannula 07/21 1616 95 Nasal 3.0L Cannula 07/21 1600 97.0 80 20 166/70 99 Nasal 3.0L Cannula 07/21 1600 96 Nasal 3.0L Cannula Intake & Output 07/22 1600 07/22 0800 07/22 0000 Intake Total 900 Output Total 575 400 350 Balance 325 -400 -350 Intake, Oral 900 Output, Urine 575 400 350 Current Medications: Current Medications Sig/Luma Start time Last Medication Dose Route Stop Time Status Admin Acetaminophen 650 MG .STK-MED ONE 07/22 0556 DC PO 07/22 0557 Acetaminophen 650 MG .STK-MED ONE 07/21 1706 DC PO 07/21 1707 Acetaminophen 650 MG Q6P PRN 07/18 0830 AC 07/22 PO 0557 Acetaminophen 1,000 MG Q6P PRN 07/18 0830 AC IV Albuterol Sulfate 3 ML EVERY 4 HRS/AWAKE 07/18 1200 AC 07/22 INH 1150 Alprazolam 0.25 MG ONCE ONE 07/21 2030 DC 07/21 PO 07/21 2031 2107 Budesonide/ 2 PUF BID 07/21 1215 AC 07/22 Formoterol Fumarate INH 0914 Ceftriaxone Sodium 1,000 MG Q24H 07/19 0500 AC 07/22 IV 07/22 2355 0557 Cefuroxime Sodium 500 MG Q12 07/23 1000 AC PO Enoxaparin Sodium 40 MG DAILY 07/18 1000 AC 07/22 SC 0918 Guaifenesin 600 MG Q12 07/18 2222 AC 07/21 PO 2106 Guaifenesin 10 ML Q6P PRN 07/18 0830 AC PO Morphine Sulfate 1 MG Q4 HRS NEEDED PRN 07/21 1230 AC 07/22 IV 0911 Paroxetine HCl 50 MG 07/18 AC 07/21 PO 210 Prednisone 40 MG DAILY 07/23 1000 AC PO Prednisone 50 MG DAILY 07/21 1000 AC 07/22 PO 07/22 2355 0912 Last 24 Hrs of Lab/Gamaliel Results Last 24 Hrs of Labs/Mics: Laboratory Tests 07/22/17 0820: Anion Gap 5, Estimated GFR > 60, Glucose 95, Calcium 9.2, Phosphorus 3.0, Magnesium 2.1, Total Bilirubin 0.1 L, AST 37 H, ALT 60 H, Albumin 3.2 L, CBC w Diff NO MAN DIFF REQ, RBC 4.07 L, MCV 96.9, MCH 32.2 H, RDW 14.0, MPV 7.2 L , Gran % 62.4, Lymphocytes % 26.3, Monocytes % 10.7 H, Eosinophils % 0.3, Basophils % 0.3, Absolute Granulocytes 3.6, Absolute Lymphocytes 1.5, Absolute Monocytes 0.6, Absolute Eosinophils 0, Absolute Basophils 0, PUBS MCHC 33.2 Assessment/Plan Assessment: Patient is a 62-year-old thin/lean woman with a past medical history significant for smoking(for more than 30 years), history of anxiety depression, migraine presented to the ED this morning with chief complaints of worsening shortness of breath and cough. Initial vitals on admission: Impression 98.8, pulse 100, blood pressure 200/80 now 126/78, RR: 13 now 18 saturating around 90-93% initially on 2 L now on 4.5 L. Pertinent labs on admission and no evidence of leukocytosis H&H stable normal BEP. First set of troponin negative, EKG pending ABG normal pH 7.37, PCO2 43 with PO2: 71 Chest x-ray : Hazy opacity within the right midlung could reflect developing pneumonia. In the ER she was found to be in respiratory distress desaturating to 79%, improved to 91% on 2 L. After receiving DuoNeb treatment with IV steroids and antibiotics, patient felt better. At the time of evaluation in the morning at around 8 AM, patient was having hard time in breathing denied any chest discomfort or palpitations. She was given another 1 of treatment and oxygen was increased to 4.5 L through nasal cannula. Chest x-ray is evident for developing right mid-level pneumonia CTA ruled out PE patient had an episode of respiratoy distress with hypercarbic hypoxia in the morning assessment and plan: Plan : #.Acute hypoxic respiratory failure due to Right midlung pneumonia and COPD exacerbation * transfer ICU and put the patient on BiPAP and stat chest x-ray * Continue IV ceftriaxone and azithromycin with IV Solu-Medrol 40 mg every 8 * Blood culture, sputum culture, strep and Legionella antigen so far negative * Avoid intubation * May have low-dose morphine if develops respiratory distress prn * No other narcotics or benzos allowed * Smoking cessation counseling has been done * Start nicotine patch. #History of anxiety and depression with migraine/FTT, cachexia * HOLD imiterex and beznos * c/w SSRI * May benefit from nutrition consult DVT prophylaxis subcutaneous Lovenox Patient is full code
--- NOTE | 2017-07-22 13:30 | PN- Pulmonary ---
Subjective HPI/Critical Care Issues: Doing better Objective Current Medications: Current Medications Sig/Luma Start time Last Medication Dose Route Stop Time Status Admin Acetaminophen 650 MG .STK-MED ONE 07/21 1706 DC PO 07/21 1707 Acetaminophen 650 MG Q6P PRN 07/18 0830 AC 07/22 PO 0557 Acetaminophen 1,000 MG Q6P PRN 07/18 0830 AC IV Albuterol Sulfate 3 ML EVERY 4 HRS/AWAKE 07/18 1200 AC 07/22 INH 1150 Alprazolam 0.25 MG ONCE ONE 07/21 2030 DC 07/21 PO 07/21 2031 2107 Budesonide/ 2 PUF BID 07/21 1215 AC 07/22 Formoterol Fumarate INH 0914 Ceftriaxone Sodium 1,000 MG Q24H 07/19 0500 AC 07/22 IV 0557 Enoxaparin Sodium 40 MG DAILY 07/18 1000 AC 07/22 SC 0918 Guaifenesin 600 MG Q12 07/18 2222 AC 07/21 PO 2107 Guaifenesin 10 ML Q6P PRN 07/18 0830 AC PO Morphine Sulfate 1 MG Q4 HRS NEEDED PRN 07/21 1230 AC 07/22 IV 0911 Paroxetine HCl 50 MG 2200 07/18 2200 AC 07/21 PO 2108 Prednisone 50 MG DAILY 07/21 1000 AC 07/22 PO 0912 Vital Signs & I&O Last 24 Hrs of Vitals and I&O: Vital Signs Date Time Temp Pulse Resp B/P B/P Pulse O2 O2 Flow FiO2 Mean Ox Delivery Rate 07/22 0909 96 Nasal 2.0L Cannula 07/22 0800 Nasal 2.0L Cannula 07/22 0628 98.0 74 18 124/76 98 Nasal 3.0L Cannula 07/22 0000 Nasal 3.0L Cannula 07/21 2224 98.1 78 20 120/70 99 BIPAP 07/21 2149 87 97 07/21 1701 97.9 98 20 110/60 93 Nasal Cannula 07/21 1616 95 Nasal 3.0L Cannula 07/21 1600 97.0 80 20 166/70 99 Nasal 3.0L Cannula 07/21 1600 96 Nasal 3.0L Cannula Intake & Output 07/22 1600 07/22 0800 07/22 0000 Intake Total Output Total 400 350 Balance -400 -350 Output, Urine 400 350 Impression/Plan Impression/Plan Impression/Plan: General Appearance Alert, Mild Distress, on nasal cannula Skin No Rashes, No Breakdown Skin Temp/Moisture Exam: Warm/D Sepsis Skin Exam (color): Normal for Ethnicity HEENT Atraumatic, PERRLA, EOMI Neck Supple, No JVD Cardiovascular Regular Rate, Normal S1, Normal S2 Lungs decreased breath sounds bilaterally with wheezing Abdomen Normal Bowel Sounds, Soft, No Tenderness Neurological Normal Gait, Normal Speech Extremities No Clubbing, No Cyanosis, No Edema Vascular Normal Pulses, Pulses Symmetrical CT CHEST IMPRESSION: 1. No pulmonary embolus identified. 2. Severe upper lobe predominant emphysema. Suspected regions of tree in bud type nodularity in the basilar right lower lobe, favoring an infectious/inflammatory bronchiolitis. 3. Mild right hilar adenopathy which is nonspecific and may be reactive in nature, though the possibility of malignancy cannot be excluded especially given the severe emphysema. Follow-up CT in 2-3 months may be helpful to assess for persistence, which would increase concern for a malignant process. VTE: negative DICTATED BY: Philip Bean MD DATE/TIME DICTATED:07/18/171132 ABG after bipap noted, 7.34/57/106 on 45 percent oxygen IMPRESSION This is a 62-year-old thin/lean woman with a past medical history significant for smoking(for more than 30 years), history of anxiety depression, migraine presented to the ED this morning with chief complaints of worsening shortness of breath and cough ISSUES Slowly resolving Acute hypoxic and hypercarbic resp failure due to ACOPDE with pna now in icu, requiring bipap. Seems to have improved Rt sided PNA improving Rt hilar lymphadenopathy and would need short term follow up with ct COPD cachexia Prob sig osteoporosis ANxiety and depression Sig smoking history REC Cont nasal cannula and keep sat at 92 DC bipap OOB to chair and increase activity Prednisone 40 mg in am iv morphine or sub cut morphine 1-2 mg for dyspnea q4 hrs only if needed Avoid benzos Keep hob up Cont abx, change to po in am with ceftin 500 bid for total abx of seven to ten days NEbs atc, start symbicort 160 2 puff bid Pt counselled about smoking cessation WIll follow closely Pt is aware of follow ct etc will follow with the team Pt may benefit from jose admission or any other intensive pulm rehab
[2017-07-22 15:32] VITALS: BP 102/52
[2017-07-22 22:45] VITALS: BP 122/60
[2017-07-23 06:50] VITALS: BP 118/76
--- NOTE | 2017-07-23 08:53 | PN- Housestaff ---
Objective Last 24 Hrs of Vital Signs/I&O Vital Signs Date Time Temp Pulse Resp B/P B/P Pulse O2 O2 Flow FiO2 Mean Ox Delivery Rate 07/23 0839 Nasal 2.0L Cannula 07/23 0800 Nasal Cannula 07/23 0650 98.0 71 18 118/76 91 Nasal 2.0L Cannula 07/23 0000 Nasal 2.0L Cannula 07/22 2245 98.1 86 18 122/60 94 Nasal Cannula 07/22 2004 96 Nasal 2.0L Cannula 07/22 1602 94 Nasal 2.0L Cannula 07/22 1532 98.7 79 18 102/52 96 07/22 0909 96 Nasal 2.0L Cannula Intake & Output 07/23 1600 07/23 0800 07/23 0000 Intake Total 120 Output Total Balance 120 Intake, Oral 120 Current Medications: Current Medications Sig/Luma Start time Last Medication Dose Route Stop Time Status Admin Acetaminophen 650 MG Q6P PRN 07/18 0830 AC 07/22 PO 0557 Acetaminophen 1,000 MG Q6P PRN 07/18 0830 AC IV Albuterol Sulfate 3 ML EVERY 4 HRS/AWAKE 07/18 1200 AC 07/23 INH 0838 Budesonide/ 2 PUF BID 07/21 1215 AC 07/23 Formoterol Fumarate INH 0842 Ceftriaxone Sodium 1,000 MG Q24H 07/19 0500 DC 07/22 IV 07/22 2355 0557 Cefuroxime Sodium 500 MG Q12 07/23 1000 AC 07/23 PO 0824 Docusate Sodium 100 MG DAILY 07/23 1000 AC 07/23 PO 0824 Enoxaparin Sodium 40 MG DAILY 07/18 1000 AC 07/23 SC 0824 Guaifenesin 600 MG Q12 07/18 2222 AC 07/23 PO 0823 Guaifenesin 10 ML Q6P PRN 07/18 0830 AC PO Morphine Sulfate 1 MG Q4 HRS NEEDED PRN 07/21 1230 AC 07/23 IV 0822 Paroxetine HCl 50 MG 2200 07/18 2200 AC 07/22 PO 2036 Prednisone 40 MG DAILY 07/23 1000 AC 07/23 PO 0824 Prednisone 50 MG DAILY 07/21 1000 DC 07/22 PO 07/22 2355 0912 Assessment/Plan Assessment: Patient is a 62-year-old thin/lean woman with a past medical history significant for smoking(for more than 30 years), history of anxiety depression, migraine presented to the ED this morning with chief complaints of worsening shortness of breath and cough. Initial vitals on admission: Impression 98.8, pulse 100, blood pressure 200/80 now 126/78, RR: 13 now 18 saturating around 90-93% initially on 2 L now on 4.5 L. Pertinent labs on admission and no evidence of leukocytosis H&H stable normal BEP. First set of troponin negative, EKG pending ABG normal pH 7.37, PCO2 43 with PO2: 71 Chest x-ray : Hazy opacity within the right midlung could reflect developing pneumonia. In the ER she was found to be in respiratory distress desaturating to 79%, improved to 91% on 2 L. After receiving DuoNeb treatment with IV steroids and antibiotics, patient felt better. At the time of evaluation in the morning at around 8 AM, patient was having hard time in breathing denied any chest discomfort or palpitations. She was given another 1 of treatment and oxygen was increased to 4.5 L through nasal cannula. Chest x-ray is evident for developing right mid-level pneumonia CTA ruled out PE patient had an episode of respiratoy distress with hypercarbic hypoxia in the morning assessment and plan: Plan : #.Acute hypoxic respiratory failure due to Right midlung pneumonia and COPD exacerbation * transfer ICU and put the patient on BiPAP and stat chest x-ray * Continue IV ceftriaxone and azithromycin with IV Solu-Medrol 40 mg every 8 * Blood culture, sputum culture, strep and Legionella antigen so far negative * Avoid intubation * May have low-dose morphine if develops respiratory distress prn * No other narcotics or benzos allowed * Smoking cessation counseling has been done * Start nicotine patch. #History of anxiety and depression with migraine/FTT, cachexia * HOLD imiterex and beznos * c/w SSRI * May benefit from nutrition consult DVT prophylaxis subcutaneous Lovenox Patient is full code
[2017-07-23 09:38] LABS: ABSOLUTE BASOPHIL COUNT 0 /CUMM (0.0-0.2); ABSOLUTE EOSINOPHIL COUNT 0.1 /CUMM (0.0-0.7); ABSOLUTE GRANULOCYTE CT 3.3 /CUMM (1.4-6.5); ABSOLUTE LYMPH COUNT 1.4 /CUMM (1.2-3.4); ABSOLUTE MONOCYTE COUNT 0.5 /CUMM (0.10-0.60); BASOPHIL % 0.3 % (0.0-2.0); EOSINOPHIL % 1.2 % (0-5); GRANULOCYTE % 63.1 % (42.2-75.2); HEMATOCRIT 41.3 % (37-47); MEAN CORPUSCULAR HGB CONC 33.3 G/DL (33.0-37.0); MEAN CORPUSCULAR VOLUME 96.3 FL (81.0-99.0); MEAN PLATELET VOLUME 6.8 FL (7.4-10.4); PLATELET COUNT 246 /CUMM (130-400); RBC DISTRIBUTION WIDTH 13.9 % (11.5-14.5); RED BLOOD CELL CT 4.29 /CUMM (4.20-5.40); WHITE BLOOD CELL COUNT 5.3 /CUMM (4.8-10.8)
--- NOTE | 2017-07-23 12:46 | PN- Pulmonary ---
Subjective HPI/Critical Care Issues: Doing ok stable Objective Current Medications: Current Medications Sig/Luma Start time Last Medication Dose Route Stop Time Status Admin Acetaminophen 650 MG Q6P PRN 07/18 0830 AC 07/22 PO 0557 Acetaminophen 1,000 MG Q6P PRN 07/18 0830 AC IV Albuterol Sulfate 3 ML EVERY 4 HRS/AWAKE 07/18 1200 AC 07/23 INH 1213 Budesonide/ 2 PUF BID 07/21 1215 AC 07/23 Formoterol Fumarate INH 0842 Ceftriaxone Sodium 1,000 MG Q24H 07/19 0500 DC 07/22 IV 07/22 2355 0557 Cefuroxime Sodium 500 MG Q12 07/23 1000 AC 07/23 PO 0824 Docusate Sodium 100 MG DAILY 07/23 1000 AC 07/23 PO 0824 Enoxaparin Sodium 40 MG DAILY 07/18 1000 AC 07/23 SC 0824 Guaifenesin 600 MG Q12 07/18 2222 AC 07/23 PO 0823 Guaifenesin 10 ML Q6P PRN 07/18 0830 AC PO Morphine Sulfate 1 MG Q4 HRS NEEDED PRN 07/21 1230 AC 07/23 IV 0822 Paroxetine HCl 50 MG 2200 07/18 2200 AC 07/22 PO 2036 Polyethylene Glycol 17 GM DAILY 07/23 1114 AC 07/23 PO 1137 Prednisone 40 MG DAILY 07/23 1000 AC 07/23 PO 0824 Prednisone 50 MG DAILY 07/21 1000 DC 07/22 PO 07/22 2355 0912 Senna 187 MG AT BEDTIME 07/23 2200 AC PO Vital Signs & I&O Last 24 Hrs of Vitals and I&O: Vital Signs Date Time Temp Pulse Resp B/P B/P Pulse O2 O2 Flow FiO2 Mean Ox Delivery Rate 07/23 0839 Nasal 2.0L Cannula 07/23 08 Nasal Cannula 07/23 0650 98.0 71 18 118/76 91 Nasal 2.0L Cannula 07/23 0000 Nasal 2.0L Cannula 07/22 2245 98.1 86 18 122/60 94 Nasal Cannula 07/22 2004 96 Nasal 2.0L Cannula 07/22 160 94 Nasal 2.0L Cannula 07/22 153 98.7 79 18 102/52 96 Intake & Output 07/23 1600 07/23 0807/23 0000 Intake Total 120 Output Total Balance 120 Intake, Oral 120 Impression/Plan Impression/Plan Impression/Plan: General Appearance Alert, Mild Distress, on nasal cannula Skin No Rashes, No Breakdown Skin Temp/Moisture Exam: Warm/D Sepsis Skin Exam (color): Normal for Ethnicity HEENT Atraumatic, PERRLA, EOMI Neck Supple, No JVD Cardiovascular Regular Rate, Normal S1, Normal S2 Lungs decreased breath sounds bilaterally with wheezing Abdomen Normal Bowel Sounds, Soft, No Tenderness Neurological Normal Gait, Normal Speech Extremities No Clubbing, No Cyanosis, No Edema Vascular Normal Pulses, Pulses Symmetrical CT CHEST IMPRESSION: 1. No pulmonary embolus identified. 2. Severe upper lobe predominant emphysema. Suspected regions of tree in bud type nodularity in the basilar right lower lobe, favoring an infectious/inflammatory bronchiolitis. 3. Mild right hilar adenopathy which is nonspecific and may be reactive in nature, though the possibility of malignancy cannot be excluded especially given the severe emphysema. Follow-up CT in 2-3 months may be helpful to assess for persistence, which would increase concern for a malignant process. VTE: negative DICTATED BY: Philip Bean MD DATE/TIME DICTATED:07/18/171132 ABG after bipap noted, 7.34/57/106 on 45 percent oxygen IMPRESSION This is a 62-year-old thin/lean woman with a past medical history significant for smoking(for more than 30 years), history of anxiety depression, migraine presented to the ED this morning with chief complaints of worsening shortness of breath and cough ISSUES Slowly resolving Acute hypoxic and hypercarbic resp failure due to ACOPDE with pna now in icu, requiring bipap. Seems to have improved Rt sided PNA improving Rt hilar lymphadenopathy and would need short term follow up with ct COPD cachexia Prob sig osteoporosis ANxiety and depression Sig smoking history REC Cont nasal cannula and keep sat at 92 OOB to chair and increase activity Prednisone 40 mg and wean in 10 days Ceftin 500 bid for total abx of seven to ten days NEbs atc, start symbicort 160 2 puff bid Pt counselled about smoking cessation WIll follow closely Pt is aware of follow ct etc will follow with the team Pt may benefit from jose admission or any other intensive pulm rehab If not can be dcd home on home oxygen Pt would need a neb machine at home Start spiriva, con symbicort Once spiriva has been started then nebs should be changed to albuterol only tid prn
--- NOTE | 2017-07-23 14:05 | PN- Att Addend ---
Attending Addendum Attending Brief Note Patient transferred to the medical service from the ICU. This is a 62-year-old female with a past medical history of COPD, was actively smoking right up until admission. She came in with acute hypoxemic respiratory failure and community- acquired pneumonia. Because of worsening respiratory status she was transferred to the ICU where she was treated with noninvasive positive pressure ventilation, steroids and antibiotics. She is doing better now and transferred out of the ICU. She is on by mouth antibiotics for the pneumonia, by mouth steroids and has been started on inhaled Symbicort and Tiotropium. We are weaning the oxygen as tolerated and questionable pulmonary rehabilitation.
[2017-07-23 15:09] VITALS: BP 108/60
[2017-07-23 22:08] VITALS: BP 132/80
[2017-07-24 06:59] VITALS: BP 110/70
--- NOTE | 2017-07-24 07:37 | PN- Housestaff ---
Sanjuana Day 07/24/17 0736: Subjective Follow-up For: COPD exacerbation Subjective: I have seen and examined the patient. She reports of SOB due to anxiery. we will restart xanax low dose Review of Systems Constitutional: Reports: see HPI. Objective Last 24 Hrs of Vital Signs/I&O Vital Signs Date Time Temp Pulse Resp B/P B/P Pulse O2 O2 Flow FiO2 Mean Ox Delivery Rate 07/24 1214 18 91 Nasal 2.0L Cannula 07/24 1130 20 85 Nasal 2.0L Cannula 07/24 0841 92 Nasal 2.0L Cannula 07/24 0800 90 Nasal 2.0L Cannula 07/24 0659 98.0 70 18 110/70 93 Nasal 2.0L Cannula 07/24 0000 Nasal 2.0L Cannula 07/23 2208 98.3 76 20 132/80 95 07/23 2045 95 Nasal 2.0L Cannula 07/23 1700 93 Nasal 2.0L Cannula 07/23 1600 93 Nasal 2.0L Cannula 07/23 1509 97.8 83 20 108/60 93 Nasal 2.0L Cannula Intake & Output 07/24 1600 07/24 0800 07/24 0000 Intake Total 240 720 Output Total Balance 240 720 Intake, Oral 240 720 Physical Exam General Appearance: Alert, Oriented X3, Cooperative, No Acute Distress Cardiovascular: Regular Rate, Normal S1, Normal S2 Lungs: decreased breath sounds BL Abdomen: Normal Bowel Sounds Extremities: No Clubbing, No Cyanosis, No Edema Assessment/Plan Assessment: Patient is a 62-year-old thin/lean woman with a past medical history significant for smoking(for more than 30 years), history of anxiety depression, migraine presented to the ED this morning with chief complaints of worsening shortness of breath and cough. Initial vitals on admission: Impression 98.8, pulse 100, blood pressure 200/80 now 126/78, RR: 13 now 18 saturating around 90-93% initially on 2 L now on 4.5 L. Pertinent labs on admission and no evidence of leukocytosis H&H stable normal BEP. First set of troponin negative, EKG pending ABG normal pH 7.37, PCO2 43 with PO2: 71 Chest x-ray : Hazy opacity within the right midlung could reflect developing pneumonia. In the ER she was found to be in respiratory distress desaturating to 79%, improved to 91% on 2 L. After receiving DuoNeb treatment with IV steroids and antibiotics, patient felt better. At the time of evaluation in the morning at around 8 AM, patient was having hard time in breathing denied any chest discomfort or palpitations. She was given another 1 of treatment and oxygen was increased to 4.5 L through nasal cannula. Chest x-ray is evident for developing right mid-level pneumonia CTA ruled out PE patient had an episode of respiratoy distress with hypercarbic hypoxia in the morning assessment and plan: Plan : #.Acute hypoxic respiratory failure due to Right midlung pneumonia and COPD exacerbation * post transfer from ICU * on IV cefurozime 500 BID for 10 days * Blood culture, sputum culture, strep and Legionella antigen so far negative * prednisone taper 40 mg in 10 days * Avoid intubation * May have low-dose morphine if develops respiratory distress prn * No other narcotics or benzos allowed * Smoking cessation counseling has been done * dc plan to home with oxygen vs jose #History of anxiety and depression with migraine/FTT, cachexia * HOLD imiterex * restart with low benzo * c/w SSRI * May benefit from nutrition consult DVT prophylaxis subcutaneous Lovenox Patient is full code Problem List: 1. COPD exacerbation Pain Ratin Pain Location: no pain Pain Goal: Pain 4 or less Pain Plan: same Tomorrow's Labs & Rationales: most like dc to home vs jose Nissa Herbert MD 07/24/17 1407: Attending MD Review Statement Attending Statement Attending MD Statement: examined this patient, discuss w/resident/PA/UNEMPLOYMENT CLAIMS ADJUDICATOR, agreed w/resident/PA/UNEMPLOYMENT CLAIMS ADJUDICATOR, reviewed EMR data (avail), discussed with nursing, reviewed images Attending Assessment/Plan: A shunt with advanced COPD with acute hypoxemic respiratory failure that required BiPAP this time. Now we have her on by mouth antibiotics and by mouth steroids per pulmonary. She is also on Symbicort and Spiriva. Pulmonary is recommending pulmonary rehabilitation and will need to follow-up with the patient about that. She has severe anxiety and she's been getting subcutaneous morphine for that. At this point I think we should restart her very low dose benzodiazepine of Xanax 0.25 twice a day when necessary watching closely.
[2017-07-24 09:16] LABS: ABSOLUTE BASOPHIL COUNT 0 /CUMM (0.0-0.2); ABSOLUTE EOSINOPHIL COUNT 0.1 /CUMM (0.0-0.7); ABSOLUTE GRANULOCYTE CT 3.9 /CUMM (1.4-6.5); ABSOLUTE LYMPH COUNT 1.6 /CUMM (1.2-3.4); ABSOLUTE MONOCYTE COUNT 0.5 /CUMM (0.10-0.60); BASOPHIL % 0.4 % (0.0-2.0); EOSINOPHIL % 2.2 % (0-5); GRANULOCYTE % 62.6 % (42.2-75.2); HEMATOCRIT 43.6 % (37-47); MEAN CORPUSCULAR HGB CONC 33.4 G/DL (33.0-37.0); MEAN CORPUSCULAR VOLUME 95.8 FL (81.0-99.0); MEAN PLATELET VOLUME 6.9 FL (7.4-10.4); PLATELET COUNT 282 /CUMM (130-400); RBC DISTRIBUTION WIDTH 13.8 % (11.5-14.5); RED BLOOD CELL CT 4.55 /CUMM (4.20-5.40); WHITE BLOOD CELL COUNT 6.3 /CUMM (4.8-10.8)
--- NOTE | 2017-07-24 10:25 | PN- Pulmonary ---
Subjective HPI/Critical Care Issues: Doing ok anxious Objective Current Medications: Current Medications Sig/Luma Start time Last Medication Dose Route Stop Time Status Admin Acetaminophen 650 MG .STK-MED ONE 07/23 1411 DC PO 07/23 1412 Acetaminophen 650 MG Q6P PRN 07/18 0830 AC 07/23 PO 1412 Acetaminophen 1,000 MG Q6P PRN 07/18 0830 AC IV Albuterol Sulfate 3 ML TID PRN 07/23 1409 AC 07/24 INH 0837 Albuterol Sulfate 3 ML EVERY 4 HRS/AWAKE 07/18 1200 DC 07/23 INH 1213 Budesonide/ 2 PUF BID 07/21 1215 AC 07/24 Formoterol Fumarate INH 0934 Cefuroxime Sodium 500 MG Q12 07/23 1000 AC 07/24 PO 0928 Docusate Sodium 100 MG DAILY 07/23 1000 AC 07/24 PO 0929 Enoxaparin Sodium 40 MG DAILY 07/18 1000 AC 07/24 SC 0933 Guaifenesin 600 MG Q12 07/18 2222 AC 07/24 PO 0931 Guaifenesin 10 ML Q6P PRN 07/18 0830 AC PO Morphine Sulfate 1 MG ONCE ONE 07/24 0845 DC 07/24 SC 07/24 0846 0924 Morphine Sulfate 1 MG Q4 HRS NEEDED PRN 07/21 1230 AC 07/23 IV 1958 Paroxetine HCl 50 MG 07/18 2200 AC 07/23 PO 1956 Polyethylene Glycol 17 GM DAILY 07/23 1114 AC 07/24 PO 0929 Prednisone 40 MG DAILY 07/23 1000 AC 07/24 PO 0931 Senna 187 MG AT BEDTIME 07/23 2200 AC 07/23 PO 1958 Tiotropium [place] 1 PUF DAILY 07/23 1403 AC 07/24 INH 0933 Vital Signs & I&O Last 24 Hrs of Vitals and I&O: Vital Signs Date Time Temp Pulse Resp B/P B/P Pulse O2 O2 Flow FiO2 Mean Ox Delivery Rate 07/24 0841 92 Nasal 2.0L Cannula 07/24 0800 90 Nasal 2.0L Cannula 07/24 0659 98.0 70 18 110/70 93 Nasal 2.0L Cannula 07/24 0000 Nasal 2.0L Cannula 07/238 98.3 76 20 132/80 95 07/23 2045 95 Nasal 2.0L Cannula 07/23 1700 93 Nasal 2.0L Cannula 07/23 1600 93 Nasal 2.0L Cannula 07/23 1509 97.8 83 20 108/60 93 Nasal 2.0L Cannula Intake & Output 07/24 1600 07/24 0800 07/24 0000 Intake Total 240 720 Output Total Balance 240 720 Intake, Oral 240 720 Impression/Plan Impression/Plan Impression/Plan: General Appearance Alert, Mild Distress, on nasal cannula Skin No Rashes, No Breakdown Skin Temp/Moisture Exam: Warm/D Sepsis Skin Exam (color): Normal for Ethnicity HEENT Atraumatic, PERRLA, EOMI Neck Supple, No JVD Cardiovascular Regular Rate, Normal S1, Normal S2 Lungs decreased breath sounds bilaterally with wheezing Abdomen Normal Bowel Sounds, Soft, No Tenderness Neurological Normal Gait, Normal Speech Extremities No Clubbing, No Cyanosis, No Edema Vascular Normal Pulses, Pulses Symmetrical CT CHEST IMPRESSION: 1. No pulmonary embolus identified. 2. Severe upper lobe predominant emphysema. Suspected regions of tree in bud type nodularity in the basilar right lower lobe, favoring an infectious/inflammatory bronchiolitis. 3. Mild right hilar adenopathy which is nonspecific and may be reactive in nature, though the possibility of malignancy cannot be excluded especially given the severe emphysema. Follow-up CT in 2-3 months may be helpful to assess for persistence, which would increase concern for a malignant process. VTE: negative DICTATED BY: Philip Bean MD DATE/TIME DICTATED:07/18/171132 ABG after bipap noted, 7.34/57/106 on 45 percent oxygen IMPRESSION This is a 62-year-old thin/lean woman with a past medical history significant for smoking(for more than 30 years), history of anxiety depression, migraine presented to the ED this morning with chief complaints of worsening shortness of breath and cough ISSUES REsolved Acute hypoxic and hypercarbic resp failure due to ACOPDE with pna / initially required bipap Rt sided PNA improving Rt hilar lymphadenopathy and would need short term follow up with ct COPD cachexia Prob sig osteoporosis ANxiety and depression Sig smoking history REC Cont nasal cannula and keep sat at 92 OOB to chair and increase activity Prednisone 40 mg and wean in 10 days Ceftin 500 bid for total abx of seven to ten days NEbs atc, start symbicort 160 2 puff bid Pt counselled about smoking cessation WIll follow closely Pt is aware of follow ct etc will follow with the team Pt may benefit from jose admission or any other intensive pulm rehab If not can be dcd home on home oxygen Pt would need a neb machine at home Start spiriva, cont symbicort Once spiriva has been started then nebs should be changed to albuterol only tid prn
[2017-07-24] MEDS ORDERED: SPIRIVA18 MCG INH ×3 (11:01→14:43)
[2017-07-24] MEDS ORDERED: SYMBICORT 16010.2 GM INH ×3 (11:01→14:43)
--- NOTE | 2017-07-24 11:02 | Patient Discharge Instructions ---
Discharge Instructions General Discharge Information You were seen/treated for: COPD exacerbation with PNA Acute respiratory failure Special Instructions: -Please follow-up with your primary care provider within 7 days after discharge. -Please follow-up with your assistant nurse manager Viraj Orta MD 7 days after discharge -We have made changes to your home medications, please read the instructions carefully. -Please come back to the hospital if your symptoms got worse. Diet Continue normal diet: Yes Activity Full Activity/No Limits: Yes (as tolerated) Acute Coronary Syndrome Inclusion Criteria At DC or during hospital stay patient has or had the following: ACS DIAGNOSIS No Discharge Core Measures Meds if any: Prescribed or Continued at Discharge Meds if any: NOT Prescribed or Continued at Discharge Congestive Heart Failure Inclusion Criteria At DC or during hospital stay patient has or had the following: CHF DIAGNOSIS No Discharge Core Measures Meds if any: Prescribed or Continued at Discharge Meds if any: NOT Prescribed or Continued at Discharge Cerebrovascular accident Inclusion Criteria At DC or during hospital stay patient has or had the following: CVA/TIA Diagnosis No Discharge Core Measures Meds if any: Prescribed or Continued at Discharge Meds if any: NOT Prescribed or Continued at Discharge Venous thromboembolism Inclusion Criteria VTE Diagnosis No VTE Type NONE VTE Confirmed by (Test) NONE Discharge Core Measures - Per Current guidelines, there needs to be overlap - treatment for the first 5 days of Warfarin therapy. - If discharged on Warfarin prior to 5 days of - overlap therapy, the patient will need to be - assessed for post discharge needs including - *Post discharge parental anticoagulation - *Warfarin and/or parental anticoagulation education - *Follow up date to check INR post discharge At least 5 days overlap therapy as Inpatient No Meds if any: Prescribed or Continued at Discharge Note: Overlap Therapy is Warfarin and Anticoagulant Meds if any: NOT Prescribed or Continued at Discharge
[2017-07-24] MEDS ORDERED: GUAIFENESIN ER600 MG PO ×2 (11:05→14:41)
[2017-07-24] MEDS ORDERED: CEFUROXIME250 M1 PO ×3 (11:05→14:43)
[2017-07-24] MEDS ORDERED: GUAIFENESI100 MG/5 M PO ×3 (13:56→14:43)
[2017-07-24] MEDS ORDERED: PREDNISONE10 M2 PO ×3 (13:56→14:43)
[2017-07-24] MEDS ORDERED: ALBUTEROL1.25 MG/1 INH/SOL ×3 (13:58→14:43)
[2017-07-24 14:51] VITALS: BP 100/80
== END 2017-07-24 17:30 | disposition home health service (06) | DRG 193 ==
LOC: ERH 02:49 → 2NA 05:53 → CRI 05:53 → ERHI 05:53 → ENTRNSPT 07:17 → EDTRNSPT 08:05 → EDTRNSPTSTS 08:05 → CMPTRNSPT 08:10 → 2NB 08:15 → CRI 08:15 → CMPTRNSPT 14:51 → ENTRNSPT 07-19 08:51 → CRI 07-19 08:53 → CMPTRNSPT 07-19 08:55 → CRI 07-20 19:00 → 2NA 07-21 16:44 → ENPENDDIS 07-24 14:30 → ENTRNSPT 07-24 16:44 → CMPTRNSPT 07-24 16:59 → 2NA 07-24 17:30
PROVIDERS: Emergency Medicine; Internal Medicine; Student in an Organized Health Care Education/Training Program
DX: J18.9 Pneumonia, unspecified organism (principal); J96.01 Acute respiratory failure with hypoxia; J96.02 Acute respiratory failure with hypercapnia; R64 Cachexia; J43.9 Emphysema, unspecified; F17.210 Nicotine dependence, cigarettes, uncomplicated; F41.9 Anxiety disorder, unspecified; F32.9 Major depressive disorder, single episode, unspecified; M81.0 Age-related osteoporosis without current pathological fracture; G43.909 Migraine, unspecified, not intractable, without status migrainosus; R59.0 Localized enlarged lymph nodes; R62.7 Adult failure to thrive
CPT/HCPCS: 2NASP; 2NBP; CCU; 36415; 81001; 82436; 87040; 87070; 87086; 87449; 87450; 87804; 87804-59; 93005; 93010; 96374; 96375; J0131; J0456; J0696; J1650; J2270; J2920; J2930; J3490; J7040; J7042; J7512